=== PATIENT | female | born 1985 | race Caucasian/White ===

== ENCOUNTER 2018-08-23 16:48 | Inpatient (IN) | payer OTHER ==
[2018-08-23 21:32] VITALS: BMI 23.6
[2018-08-23] MEDS ORDERED: MELATONIN 5 MG TABLETS PO PRN (22:00)
--- NOTE | 2018-08-23 22:28 | HP ---
COWS - Scale Resting Pulse: 2= [place] 101-120 Sweatin=Flushed/Facial Moisture Restless Observation: 1= Difficult to Sit Still Pupil Size: 0= Normal to Room Light Bone or Joint Aches: 4=Acute Joint/Muscle Pain Runny Nose/ Eye Tearin= Runny Nose/Eyes GI Upset > 30mins: 1= Stomach Cramp Tremor Observation: 4= Gross Tremor/Twitching Yawning Observation: 1= 1-2x During Session Anxiety or Irritability: 2=Irritable/Anxious Goose Flesh Skin: 0=Smooth Skin COWS Score: 19 CIWA Score Nausea/Vomitin (vomiting x 3) Muscle Tremors: 4-Moderate,w/Arms Extend Anxiety: 3 Agitation: 3 Paroxysmal Sweats: 1-Minimal Palms Moist Orientation: 2-Disoriented Date<2 days Tacttile Disturbances: 0-None Auditory Disturbances: 0-None Visual Disturbances: 1-Very Mild Sensitivity Headache: 3-Moderate CIWA-Ar Total Score: 20 - Admission Criteria [facility] Guidelines: Admission for Medically Managed Detox: Requires at least one of the followin. CIWA greater than 12 2. Seizures within the past 24 hours 3. Delirium tremens within the past 24 hours 4. Hallucinations within the past 24 hours 5. Acute intervention needed for co occurring medical disorder 6. Acute intervention needed for co occurring psychiatric disorder 7. Severe withdrawal that cannot be handled at a lower level of care (continued vomiting, continued diarrhea, abnormal vital signs) requiring intravenous medication and/or fluids 8. Admission ROS [facility] Chief Complaint: Alcohol and heroin withdrawal symptoms Allergies/Adverse Reactions: Allergies Allergy/AdvReac Type Severity Reaction Status Date / Time amoxicillin Allergy Severe Hives Verified 08/23/18 20:50 Penicillins Allergy Severe Swelling Verified 08/23/18 20:50 History of Present Illness: 33 years old female with a long history of alcohol and heroin dependence is seeking admission to detox. This is her first admission to [facility]. Patient has been in previous detox and reports insignificant period of sobriety. She has medical history of anxiety, depression, renal failure, Hepatitis C and anxiety. She denies suicidal ideation at this time - Ebola screening Have you traveled outside of the country in the last 21 days: No Have you had contact with anyone from an Ebola affected area: No Have you been sick,other than usual withdrawal symptoms: No Do you have a fever: No Patient History - Patient Medical History Hx Anemia: Yes Hx Asthma: No Hx Chronic Obstructive Pulmonary Disease (COPD): No Hx Cancer: No Hx Cardiac Disorders: No Hx Congestive Heart Failure: No Hx Hypertension: No Hx Hypercholesterolemia: No Hx Pacemaker: No HX Cerebrovascular Accident: No Hx Seizures: Yes (Not on medication) Hx Diabetes: No Hx Gastrointestinal Disorders: No Hx Genitourinary Disorders: No Hx Sexually Transmitted Disorders: No Hx Renal Disease (ESRD): Yes (Kidney Failure) Hx Thyroid Disease: No Hx Human Immunodeficiency Virus (HIV): No (Negative 2018) Hx Hepatitis C: Yes (Not treated) Hx Depression: Yes (Not on medication) Hx Suicide Attempt: No Hx Schizophrenia: No Other Medical History: Anxiety - Not on medication - Patient Surgical History Past Surgical History: No Hx Neurologic Surgery: No Hx Cataract Extraction: No Hx Cardiac Surgery: No Hx Lung Surgery: No Hx Breast Surgery: No Hx Breast Biopsy: No Hx Abdominal Surgery: No Hx Appendectomy: No Hx Cholecystectomy: No Hx Genitourinary Surgery: No Hx Section: No Hx Orthopedic Surgery: No Anesthesia Reaction: No - PPD History Previous Implant?: Yes Documented Results: Negative w/o proof Implanted On Prior R Admission?: No PPD to be Administered?: Yes - Reproductive History Patient is a Female of Child Bearing Age (11 -55 yrs old): Yes Last Menstrual Period: 08/04/18 Patient : No - Smoking Cessation Smoking history: Current every day smoker Have you smoked in the past 12 months: Yes Aproximately how many cigarettes per day: 10 Hx Chewing Tobacco Use: No Initiated information on smoking cessation: Yes 'Breaking Loose' booklet given: 08/23/18 - Substance & Tx. History Hx Alcohol Use: Yes Hx Substance Use: Yes Substance Use Type: Alcohol, Cocaine, Heroin, Marijuana, Opiates Hx Substance Use Treatment: Yes ([place], [place]) - Substances Abused Alcohol Route: Oral Frequency: Daily Amount used: LIQUOR- 1 PINT, BEER- 1 SIX PACK Age of first use: 22 Date of Last Use: 08/23/18 Heroin Route: Injection Frequency: Daily Amount used: 4 BAGS Age of first use: 22 Date of Last Use: 08/23/18 Crack Route: Smoking Frequency: Daily Amount used: $100 WORTH Age of first use: 22 Date of Last Use: 08/23/18 Marijuana/Hashish Route: Smoking Frequency: Daily Amount used: 3.5 gm Age of first use: 22 Date of Last Use: 08/22/18 Family Disease History - Family Disease History Family History: Denies Admission Physical Exam [facility] - Vital Signs Vital Signs: Vital Signs - 24 hr 08/23/18 20:45 Temperature 98.1 F Pulse Rate 110 H Respiratory 18 Rate Blood Pressure 100/80 - Physical General Appearance: Yes: Moderate Distress, Tremorous, Irritable, Sweating, Anxious HEENTM: Yes: EOMI, Normal ENT Inspection, Normal Voice, KAYLYNN Respiratory: Yes: Lungs Clear, Normal Breath Sounds, No Respiratory Distress Breast: Yes: Breast Exam Deferred Cardiology: Yes: Tachycardia Abdominal: Yes: Normal Bowel Sounds, Soft Genitourinary: Yes: Within Normal Limits Back: Yes: Normal Inspection Musculoskeletal: Yes: Back pain, Muscle Pain, Muscle weakness Extremities: Yes: Tremors Neurological: Yes: Alert, Normal Mood/Affect Integumentary: Yes: Warm Lymphatic: Yes: Within Normal Limits - Diagnostic (1) Opioid dependence with withdrawal Current Visit: Yes Status: Chronic (2) Alcohol dependence with uncomplicated withdrawal Current Visit: Yes Status: Chronic (3) Nicotine dependence Current Visit: Yes Status: Chronic Qualifiers: Nicotine product type: cigarettes Substance use status: uncomplicated Qualified Code(s): F17.210 - Nicotine dependence, cigarettes, uncomplicated (4) Hep C w/ coma, chronic Current Visit: Yes Status: Chronic (5) Hep C w/o coma, chronic Current Visit: Yes Status: Chronic (6) Anemia Current Visit: Yes Status: Chronic Qualifiers: Anemia type: unspecified type Qualified Code(s): D64.9 - Anemia, unspecified (7) Seizure Current Visit: Yes Status: Chronic (8) Kidney failure Current Visit: Yes Status: Chronic Qualifiers: Renal failure chronicity: unspecified chronicity Qualified Code(s): N19 - Unspecified kidney failure (9) Depression Current Visit: Yes Status: Chronic Qualifiers: Depression Type: unspecified Qualified Code(s): F32.9 - Major depressive disorder, single episode, unspecified (10) Anxiety Current Visit: Yes Status: Chronic Cleared for Admission [facility] - Detox or Rehab [facility] Level of Care: Medically Managed Detox Regimen/Protocol: Methadone/Librium S Breath Alcohol Content Breath Alcohol Content: 0 Urine Pregancy Test - Result Urine Test Results: Negative- NO Line Present Urine Drug Screen - Results Drug Screen Negative: No Urine Drug Screen Results: THC-Marijuana, STEPHANIE-Cocaine, OPI-Opiates, OXY- Oxycodone
[2018-08-23] MEDS ORDERED: chlordiazePOXIDE HCL 25 MG CAPSULE PO PRN (22:40)
[2018-08-23] MEDS ORDERED: METHADONE HCL 10 MG TABLET (FOR DETOX USE ONLY) PO ONE ×2 (22:40→23:00)
[2018-08-23] MEDS ORDERED: guaiFENesin/D-METHORPHAN HB 10 ML UNIT-DOSE CUPS PO PRN (22:40)
[2018-08-23] MEDS ORDERED: MAGNESIUM HYDROX 2400MG/30ML ORAL SUSPENSION 30 ML CUP PO PRN (22:40)
[2018-08-23] MEDS ORDERED: ACETAMINOPHEN 325 MG TABLET (FP) PO PRN (22:40)
[2018-08-23] MEDS ORDERED: MAGNESIUM CITRATE 300 ML BOTTLE PO PRN (22:40)
[2018-08-23] MEDS ORDERED: NICOTINE POLACRILEX 2 MG GUM BC PRN (22:40)
[2018-08-23] MEDS ORDERED: LOPERAMIDE HCL 2 MG CAPSULE PO PRN (22:40)
[2018-08-23] MEDS ORDERED: P-EPHED 60MG/TRIPROLIDI 2.5MG TABLET PO PRN (22:40)
[2018-08-23] MEDS ORDERED: MENTHOL/PHENOL 1 EACH UD MM PRN (22:40)
[2018-08-23] MEDS ORDERED: MAG HYDROX/AL HYDROX/SIMETH 30 ML UNIT-DOSE CUP PO PRN (22:40)
[2018-08-23] MEDS ORDERED: IBUPROFEN 400 MG TABLET (FP) PO PRN (22:40)
[2018-08-24 03:03] LABS: URINE APPEARANCE CLOUDY; URINE BILIRUBIN NEGATIVE (<2.0 mg/dL); URINE COLOR YELLOW; URINE GLUCOSE (UA) NEGATIVE (NEGATIVE); URINE KETONE NEGATIVE (NEGATIVE); URINE LEUK ESTERASE TRACE (NEGATIVE); URINE NITRITE NEGATIVE (NEGATIVE); URINE PROTEIN NEGATIVE (NEGATIVE); URINE UROBILINOGEN NEGATIVE mg/dL (0.2-1.0)
[2018-08-24 03:13] LABS: EPI CELLS MODERATE /HPF (FEW); URINE BACTERIA RARE /hpf (NONE SEEN); URINE HYALINE CAST 23 /lpf; URINE MUCUS RARE
[2018-08-24] MEDS ORDERED: METHADONE HCL 10 MG TABLET PO ONE (04:06)
[2018-08-24] MEDS: chlordiazePOXIDE HCL 25 MG CAPSULE PO SCH ×4 (07:36→18:33)
[2018-08-24] MEDS ORDERED: PRENATAL VITAMINS W/ FOLIC ACID TABLET (FP) PO SCH (10:00)
[2018-08-24] MEDS ORDERED: NICOTINE 14 MG/24 HOURS TOPICAL PATCH TD SCH (10:00)
[2018-08-24] MEDS ORDERED: METHADONE HCL 10 MG TABLET (FOR DETOX USE ONLY) PO SCH (10:00)
[2018-08-24 10:06] LABS: HEMATOCRIT 23.9 % (32.4-45.2); HEMOGLOBIN 8.3 GM/dL (10.7-15.3); MCH 30.6 pg (25.7-33.7); MCHC 34.9 g/dl (32.0-36.0); MEAN CELL VOLUME 87.8 fl (80-96); MEAN PLT VOLUME 8.3 fl (7.5-11.1); PLATELET COUNT 270 K/MM3 (134-434); RBC 2.72 M/mm3 (3.60-5.2); RDW 13.8 % (11.6-15.6); WHITE BLOOD COUNT 10.3 K/mm3 (4.0-10.0)
[2018-08-24 10:36] LABS: ALBUMIN 2.8 g/dl (3.4-5.0); ALK PHOS 78 U/L (45-117); ANION GAP 15 MMOL/L (8-16); BILIRUBIN,TOTAL 0.6 mg/dL (0.2-1); BLOOD UREA NITROGEN 60 mg/dL (7-18); CALCIUM 8.3 mg/dL (8.5-10.1); CHLORIDE 90 mmol/L (98-107); CO2 27 mmol/L (21-32); GLUCOSE,RANDOM 77 mg/dL (74-106); POTASSIUM 4.9 mmol/L (3.5-5.1); SGOT/AST 7 U/L (15-37); SGPT/ALT 8 U/L (13-61); SODIUM 131 mmol/L (136-145); TOT PROT 7.4 g/dl (6.4-8.2)
--- NOTE | 2018-08-24 10:55 | PN ---
[facility] CIWA - CIWA Score Nausea/Vomitin-No Nausea/No Vomiting Muscle Tremors: 4-Moderate,w/Arms Extend Anxiety: 3 Agitation: 3 Paroxysmal Sweats: 3 Orientation: 0-Oriented Tacttile Disturbances: 0-None Auditory Disturbances: 0-None Visual Disturbances: 0-None Headache: 0-None Present CIWA-Ar Total Score: 13 [facility] COWS - Scale Resting Pulse: 0= [place] 80 or Below Sweatin= Chills/Flushing Restless Observation: 1= Difficult to Sit Still Pupil Size: 0= Normal to Room Light Bone or Joint Aches: 2= Severe Diffuse Aches Runny Nose/ Eye Tearin= Nasal Congestion GI Upset > 30mins: 0= None Tremor Observation of Outstretched Hands: 2= Slight Tremor Visible Yawning Observation: 2= >3x During Session Anxiety or Irritability: 2=Irritable/Anxious Goose Flesh Skin: 0=Smooth Skin COWS Score: 11 S Progress Note (SOAP) Subjective: agitation anxiety sweats shakes interrupted sleep body aches irritable Objective: 08/24/18 10:54 Vital Signs Temperature 97.2 F L 08/24/18 09:44 Pulse Rate 62 08/24/18 09:44 Respiratory Rate 16 08/24/18 09:44 Blood Pressure 85/57 L 08/24/18 09:44 O2 Sat by Pulse Oximetry (%) Laboratory Tests 08/23/18 08/24/18 08/24/18 23:50 07:00 07:00 WBC 10.3 H RBC 2.72 L Hgb 8.3 L Hct 23.9 L MCV 87.8 MCH 30.6 MCHC 34.9 RDW 13.8 Plt Count 270 MPV 8.3 Sodium 131 L Potassium 4.9 Chloride 90 L Carbon Dioxide 27 Anion Gap 15 BUN 60 H Creatinine 6.0 H Creat Clearance w eGFR 8.13 Random Glucose 77 Calcium 8.3 L Total Bilirubin 0.6 AST 7 L ALT 8 L Alkaline Phosphatase 78 Total Protein 7.4 Albumin 2.8 L Urine Color Yellow Urine Appearance Cloudy Urine pH 5.0 Ur Specific [place] 1.010 Urine Protein Negative Urine Glucose (UA) Negative Urine Ketones Negative Urine Blood Negative Urine Nitrite Negative Urine Bilirubin Negative Urine Urobilinogen Negative Ur Leukocyte Esterase Trace Urine WBC (Auto) 3 Urine RBC (Auto) 1 Ur Epithelial Cells Moderate Urine Bacteria Rare Hyaline Casts 23 Urine Mucus Rare low H:H; order iron supplement [id number] lying in bed groggy Assessment: 08/24/18 10:54 withdrawal sx Plan: hold 10am librium increase fluids continue detox labs pending
[2018-08-24 13:40] VITALS: BP 75/39; PULSE 66; TEMP 97.7
[2018-08-24] MEDS ORDERED: FERROUS SO4 325 MG TABLET (FP) PO ONE (14:00)
--- NOTE | 2018-08-24 15:01 | PN ---
S Progress Note Note: pt was asked to sit up so nursing staff and or Arrt Technologist can get a manual BP because her current BP is low. Pt was told that her medication will continue to be help unless her BP is higher than recently recorded. Last BP 75/39 and pulse 76. pt refused to comply with the need of BP. Pt states all I want to do is sleep. Pt counselor was also asked to speak to pt but pt insisted that she will do it later. Pt will continue to be monitored. Pt was also told that if her BP maintains low, she will be sent to our ED at [place] for evaluation and/or stability of her BP.
--- NOTE | 2018-08-24 15:20 | EKG ---
Test Reason : Blood Pressure : / mmHG Vent. Rate : 076 BPM Atrial Rate : 076 BPM P-R Int : 140 ms QRS Dur : 094 ms QT Int : 420 ms P-R-T Axes : 055 058 048 degrees QTc Int : 472 ms NORMAL SINUS RHYTHM NORMAL ECG NO PREVIOUS ECGS AVAILABLE Confirmed by Bladimir Rosas MD ([id number]) on 08/24/2018 3:19:51 PM Referred By: Confirmed By:Bladimir Rosas MD
--- NOTE | 2018-08-24 15:30 | CONSULT ---
[facility] Psychiatric Consult - Data Date of interview: 08/24/18 Admission source: [facility] Identifying data: [employer] attempted to speak to patient. Patient responded by stating, " I don't want to speak to you i am sleeping."
--- NOTE | 2018-08-24 15:51 | PN ---
S Progress Note Note: pt continues with low BP. last BP 75/35, pulse 66. pt is awake and abusable on command but falls right asleep. Report given to Dr. Teran for pt evaluation. Pt denies of any falls or using any illicit drugs while on our unit. Pt has not been medicated since she arrived last night. pt will be going to [place] ED.
[2018-08-24] MEDS ORDERED: FERROUS SO4 325 MG TABLET (FP) PO SCH (17:30)
[2018-08-24] MEDS ORDERED: THIAMINE HCL 100 MG TABLET (FP) PO SCH (22:00)
[2018-08-24] MEDS ORDERED: chlordiazePOXIDE HCL 25 MG CAPSULE PO SCH (23:00)
--- NOTE | 2018-08-25 08:56 | DS ---
[facility] Detox Discharge Summary Admission Date: 08/23/18 Discharge Date: 08/24/18 - Physical Exam Results Vital Signs: Vital Signs Temperature 97.7 F 08/24/18 13:40 Pulse Rate 66 08/24/18 13:40 Respiratory Rate 16 08/24/18 13:40 Blood Pressure 75/39 L 08/24/18 13:40 O2 Sat by Pulse Oximetry (%) - Medication Discharge Medications: Ambulatory Orders Acetaminophen [Tylenol] 650 mg PO Q4H PRN 08/24/18 Chlordiazepoxide [Librium -] 10 mg PO Q6HPO 08/24/18 Chlordiazepoxide [Librium -] 15 mg PO Q6HPO 08/24/18 Chlordiazepoxide [Librium -] 25 mg PO Q4H PRN 08/24/18 Chlordiazepoxide [Librium -] 25 mg PO Q6HPO 08/24/18 Chlordiazepoxide [Librium -] 50 mg PO Q6HPO 08/24/18 Ferrous Sulfate [Feosol] 325 mg PO DAILY 08/24/18 Guaifenesin Dm [Robitussin Dm -] 10 ml PO Q6H PRN 08/24/18 Ibuprofen [Motrin -] 400 mg PO PRN PRN 08/24/18 Loperamide HCl [Imodium -] 4 mg PO Q6H PRN 08/24/18 Mag Hydrox/Al Hydrox/Simeth [Mylanta *Suspension*] 30 ml PO Q6H PRN 08/24/18 Magnesium Citrate [Citroma -] 300 ml PO Q48H PRN 08/24/18 Magnesium Hydrox 2400MG/30Ml [Milk of Magnesia -] 30 ml PO ONCE PRN 08/24/18 Melatonin 5 mg PO HS PRN 08/24/18 Menthol/Phenol [Cepastat Lozenge -] 1 each MM Q4H PRN 08/24/18 Methadone (Detox) [Dolophine -] 10 mg PO DAILY 08/24/18 Methadone (Detox) [Dolophine -] 15 mg PO DAILY 08/24/18 Methadone (Detox) [Dolophine -] 20 mg PO DAILY 08/24/18 Nicotine Patch [Nicoderm Patch -] 1 patch TD DAILY 08/24/18 Nicotine Polacrilex [Nicorette] 2 mg BC Q2H PRN 08/24/18 Pnv No.95/Ferrous Fum/Folic AC [ Vitamin Tablet] 1 each PO DAILY Thiamine HCl [Vitamin B1] 100 mg PO HS 08/24/18 - Diagnosis (1) Alcohol dependence with uncomplicated withdrawal Status: Chronic (2) Anemia Status: Chronic Qualifiers: Anemia type: unspecified type Qualified Code(s): D64.9 - Anemia, unspecified (3) Anxiety Status: Chronic (4) Depression Status: Chronic Qualifiers: Depression Type: unspecified Qualified Code(s): F32.9 - Major depressive disorder, single episode, unspecified (5) Hep C w/o coma, chronic Status: Chronic (6) Kidney failure Status: Chronic Qualifiers: Renal failure chronicity: unspecified chronicity Qualified Code(s): N19 - Unspecified kidney failure (7) Nicotine dependence Status: Chronic Qualifiers: Nicotine product type: cigarettes Substance use status: uncomplicated Qualified Code(s): F17.210 - Nicotine dependence, cigarettes, uncomplicated (8) Opioid dependence with withdrawal Status: Chronic (9) Seizure Status: Chronic - AMA Did Patient Leave Against Medical Advice: No (pt sent and admitted to [facility] yesterday)
[2018-08-25] MEDS ORDERED: METHADONE HCL 5 MG TABLET (FOR DETOX USE ONLY) PO SCH (10:00)
[2018-08-25] MEDS ORDERED: chlordiazePOXIDE 5 MG CAPSULE PO SCH (23:00)
[2018-08-26] MEDS ORDERED: chlordiazePOXIDE HCL 10 MG CAPSULE PO SCH (23:00)
[2018-08-27] MEDS ORDERED: METHADONE HCL 10 MG TABLET (FOR DETOX USE ONLY) PO SCH (10:00)
[2018-08-28] MEDS ORDERED: METHADONE HCL 5 MG TABLET (FOR DETOX USE ONLY) PO SCH (06:00)
== END 2018-08-24 23:43 | disposition short-term general hospital (02) | DRG 773 ==
LOC: YASAS 16:48 → UNDOADMIN 23:02 → Y6N 23:02
PROVIDERS: ADMIT Neuromusculoskeletal Medicine & OMM; ATTEND Neuromusculoskeletal Medicine & OMM
PROC: HZ2ZZZZ Detoxification Services for Substance Abuse Treatment (ICD-10-PCS; principal; 2018-08-23)
DX: F11.23 Opioid dependence with withdrawal (principal); F10.230 Alcohol dependence with withdrawal, uncomplicated; F17.210 Nicotine dependence, cigarettes, uncomplicated; F41.9 Anxiety disorder, unspecified; F32.9 Major depressive disorder, single episode, unspecified; B18.2 Chronic viral hepatitis C; D64.9 Anemia, unspecified; N19 Unspecified kidney failure; R56.9 Unspecified convulsions; Z88.0 Allergy status to penicillin
CPT/HCPCS: 36415; 80053; 81003; 81015; 85027; 86593; 93005; 93010

== ENCOUNTER 2018-08-24 16:23 | Inpatient (IN) | payer OTHER ==
--- NOTE | 2018-08-24 17:18 | PDOC ---
History of Present Illness - General Chief Complaint: Blood Pressure Problem Stated Complaint: WITHDRAWAL Time Seen by Provider: 08/24/18 17:17 History Source: Patient Exam Limitations: Intoxication (methadone/librium) Past History - Past Medical History Allergies/Adverse Reactions: Allergies Allergy/AdvReac Type Severity Reaction Status Date / Time amoxicillin Allergy Severe Hives Verified 08/23/18 20:50 Penicillins Allergy Severe Swelling Verified 08/23/18 20:50 Home Medications: Ambulatory Orders Acetaminophen [Tylenol] 650 mg PO Q4H PRN 08/24/18 Chlordiazepoxide [Librium -] 10 mg PO Q6HPO 08/24/18 Chlordiazepoxide [Librium -] 15 mg PO Q6HPO 08/24/18 Chlordiazepoxide [Librium -] 25 mg PO Q4H PRN 08/24/18 Chlordiazepoxide [Librium -] 25 mg PO Q6HPO 08/24/18 Chlordiazepoxide [Librium -] 50 mg PO Q6HPO 08/24/18 Ferrous Sulfate [Feosol] 325 mg PO DAILY 08/24/18 Guaifenesin Dm [Robitussin Dm -] 10 ml PO Q6H PRN 08/24/18 Ibuprofen [Motrin -] 400 mg PO PRN PRN 08/24/18 Loperamide HCl [Imodium -] 4 mg PO Q6H PRN 08/24/18 Mag Hydrox/Al Hydrox/Simeth [Mylanta *Suspension*] 30 ml PO Q6H PRN 08/24/18 Magnesium Citrate [Citroma -] 300 ml PO Q48H PRN 08/24/18 Magnesium Hydrox 2400MG/30Ml [Milk of Magnesia -] 30 ml PO ONCE PRN 08/24/18 Melatonin 5 mg PO HS PRN 08/24/18 Menthol/Phenol [Cepastat Lozenge -] 1 each MM Q4H PRN 08/24/18 Methadone (Detox) [Dolophine -] 10 mg PO DAILY 08/24/18 Methadone (Detox) [Dolophine -] 15 mg PO DAILY 08/24/18 Methadone (Detox) [Dolophine -] 20 mg PO DAILY 08/24/18 Nicotine Patch [Nicoderm Patch -] 1 patch TD DAILY 08/24/18 Nicotine Polacrilex [Nicorette] 2 mg BC Q2H PRN 08/24/18 Pnv No.95/Ferrous Fum/Folic AC [ Vitamin Tablet] 1 each PO DAILY Thiamine HCl [Vitamin B1] 100 mg PO HS 08/24/18 Anemia: Yes Asthma: No Cancer: No Cardiac Disorders: No CVA: No COPD: No CHF: No Diabetes: No GI Disorders: No Disorders: No HTN: No Hypercholesterolemia: No Kidney Stones: No Seizures: Yes (Not on medication) Thyroid Disease: No - Surgical History Abdominal Surgery: No Appendectomy: No Cardiac Surgery: No Cholecystectomy: No Lung Surgery: No Neurologic Surgery: No Orthopedic Surgery: No - Suicide/Smoking/Psychosocial Hx Smoking History: Current every day smoker Have you smoked in the past 12 months: Yes Number of Cigarettes Smoked Daily: 10 'Breaking Loose' booklet given: 08/23/18 Hx Alcohol Use: Yes Drug/Substance Use Hx: Yes Substance Use Type: Alcohol, Cocaine, Heroin, Marijuana, Opiates Hx Substance Use Treatment: Yes ([place], [place]) ED Treatment Course - LABORATORY CBC & Chemistry Diagram: 08/24/18 17:50 08/24/18 17:50 Medical Decision Making - Medical Decision Making Pt was seen at bedside, also will be seen by attending Dr. Obrien. Pt presenting from [facility], with hypotension and lethargy. The facility states they gave her methadone and librium this morning, but the pt has been "too lethargic" and they noted BPs of 80s/40s. The pt states her BP is "always really low," but does not know the numbers. Pt is at [facility] for detox of alcohol (1 pint liquor per day), BP 94/41, HR 70s, saturation 100% on RA, afebrile. PE showed tongue fasciculations, eyes PERRLA, pt lethargic, but able to arouse for questioning. Pt oriented to year, place, and self/age. Clear heart and lung sounds. No abdominal/suprapubic tenderness, normoactive bowel sounds. 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 Considering methadone/librium reaction, acute drug overdose, infectious (UTI/ sepsis), electrolyte imbalance. Ordered work-up including CBC, CMP, lactic, blood culture, EKG, UA, urine culture, urine tox, alcohol/acetaminophen/salicylates. Provided [interventions/meds] for improvement of [pain/symptom control]. Will continue to reassess pt and monitor for symptomatic improvement. 08/24/18 18:08 CBC: H/H 9.0/26.1 (yesterday 8.3/23.9) 08/24/18 18:20 Urine sent, pending UA and drug screen results. Pending CMP. 08/24/18 18:28 ECG NSR, normal intervals, no ST segment changes. Pt signed out to next resident team. Explained presentation, ED course, any pending results, and needed interventions to resident Dr. Buckner. Pt stable and lying comfortably. Received 1L NS and banana bag currently hanging. 08/24/18 19:24
[2018-08-24] MEDS ORDERED: SODIUM CHLORIDE 1,565 ML IV ONE (17:38)
[2018-08-24] MEDS ORDERED: FOLIC ACID INJECTION - 1 MG, THIAMINE HCL 100 MG, MULTIVIT INJECTION ADULT 10 ML in SOD... IVPB ONE (17:41)
[2018-08-24] MEDS ORDERED: SODIUM CHLORIDE 1,000 ML IV STA (17:41)
[2018-08-24 18:02] LABS: BASO % 0.7 % (0-2.0); EOS % 2.2 % (0-4.5); HEMATOCRIT 26.1 % (32.4-45.2); LYMPH % 19.7 % (8-40); MCHC 34.4 g/dl (32.0-36.0); MEAN CELL VOLUME 87.1 fl (80-96); MEAN PLT VOLUME 8.4 fl (7.5-11.1); MONO % 8.5 % (3.8-10.2); NEUT % 68.9 % (42.8-82.8); PLATELET COUNT 284 K/MM3 (134-434); RBC 2.99 M/mm3 (3.60-5.2); RDW 13.8 % (11.6-15.6); WHITE BLOOD COUNT 7.1 K/mm3 (4.0-10.0)
[2018-08-24 18:41] LABS: URINE APPEARANCE CLEAR; URINE BILIRUBIN NEGATIVE (<2.0 mg/dL); URINE COLOR LTYELLOW; URINE GLUCOSE (UA) NEGATIVE (NEGATIVE); URINE KETONE NEGATIVE (NEGATIVE); URINE LEUK ESTERASE NEGATIVE (NEGATIVE); URINE NITRITE NEGATIVE (NEGATIVE); URINE PROTEIN NEGATIVE (NEGATIVE); URINE UROBILINOGEN NEGATIVE mg/dL (0.2-1.0)
[2018-08-24 18:52] LABS: PHENCYCLIDINE,URINE NEGATIVE ng/ml (CUTOFF=25); URINE AMPHETAMINES NEGATIVE ng/ml (CUTOFF=500); URINE BARBITURATES NEGATIVE ng/ml (CUTOFF=200); URINE BENZODIAZEPINES NEGATIVE ng/ml (CUTOFF=200)
[2018-08-24 18:52] LABS: ALBUMIN 2.5 g/dl (3.4-5.0); ALK PHOS 85 U/L (45-117); ANION GAP 12 MMOL/L (8-16); BILIRUBIN,TOTAL 0.3 mg/dL (0.2-1); BLOOD UREA NITROGEN 61 mg/dL (7-18); CALCIUM 8.4 mg/dL (8.5-10.1); CHLORIDE 92 mmol/L (98-107); CO2 27 mmol/L (21-32); CREATININE 5.3 mg/dL (0.55-1.3); GLUCOSE,RANDOM 99 mg/dL (74-106); POTASSIUM 5.6 mmol/L (3.5-5.1); SGOT/AST 8 U/L (15-37); SGPT/ALT 9 U/L (13-61); SODIUM 130 mmol/L (136-145); TOT PROT 7.2 g/dl (6.4-8.2)
[2018-08-24 18:58] LABS: COCAINE, UR POSITIVE ng/ml (CUTOFF=300); METHADONE, UR POSITIVE ng/ml (CUTOFF=300); OPIATES, URI POSITIVE ng/ml (CUTOFF=300)
--- NOTE | 2018-08-24 19:38 | PDOC ---
*Physical Exam - Vital Signs Last Vital Signs Temp Pulse Resp BP Pulse Ox 98.3 F 92 H 16 99/56 L 98 08/24/18 17:42 08/24/18 18:41 08/24/18 18:41 08/24/18 18:41 08/24/18 18:41 ED Treatment Course - LABORATORY CBC & Chemistry Diagram: 08/24/18 17:50 08/24/18 17:50 - ADDITIONAL ORDERS Additional order review: Laboratory Results 08/24/18 08/24/18 08/24/18 18:09 18:09 17:50 Sodium 130 L Potassium 5.6 H Chloride 92 L Carbon Dioxide 27 Anion Gap 12 BUN 61 H Creatinine 5.3 H Creat Clearance w eGFR 9.38 Random Glucose 99 Lactic Acid Calcium 8.4 L Total Bilirubin 0.3 AST 8 L ALT 9 L Alkaline Phosphatase 85 Troponin I < 0.02 Total Protein 7.2 Albumin 2.5 L Beta HCG, Quant < 1.0 Urine Color Ltyellow Urine Appearance Clear Urine pH 5.0 Ur Specific [place] 1.010 Urine Protein Negative Urine Glucose (UA) Negative Urine Ketones Negative Urine Blood Negative Urine Nitrite Negative Urine Bilirubin Negative Urine Urobilinogen Negative Ur Leukocyte Esterase Negative Salicylates < 1.7 L Opiates Screen Positive A* Methadone Screen Positive A* Acetaminophen < 2.0 L Barbiturate Screen Negative Phencyclidine Screen Negative Ur Amphetamines Screen Negative MDMA (Ecstasy) Screen Negative Benzodiazepines Screen Negative Cocaine Screen Positive A* U Marijuana (THC) Screen Positive A* Alcohol, Quantitative < 3.0 08/24/18 17:46 Sodium Potassium Chloride Carbon Dioxide Anion Gap BUN Creatinine Creat Clearance w eGFR Random Glucose Lactic Acid 1.2 Calcium Total Bilirubin AST ALT Alkaline Phosphatase Troponin I Total Protein Albumin Beta HCG, Quant Urine Color Urine Appearance Urine pH Ur Specific [place] Urine Protein Urine Glucose (UA) Urine Ketones Urine Blood Urine Nitrite Urine Bilirubin Urine Urobilinogen Ur Leukocyte Esterase Salicylates Opiates Screen Methadone Screen Acetaminophen Barbiturate Screen Phencyclidine Screen Ur Amphetamines Screen MDMA (Ecstasy) Screen Benzodiazepines Screen Cocaine Screen U Marijuana (THC) Screen Alcohol, Quantitative 08/24/18 17:50 RBC 2.99 L MCV 87.1 MCHC 34.4 RDW 13.8 MPV 8.4 Neutrophils % 68.9 Lymphocytes % 19.7 Monocytes % 8.5 Eosinophils % 2.2 Basophils % 0.7 - Medications Given in the ED: ED Medications Discontinued Medications Generic Name Dose Route Start Last Admin Trade Name [place] PRN Reason Stop Dose Admin Sodium Chloride 1,565 mls @ 782.5 mls/hr 08/24/18 17:38 08/24/18 17:43 Normal Saline - 30 ml/kg infuse over 2 hr (1565 ml) 08/24/18 19:37 Not Given IV ONCE ONE Sodium Chloride 1,000 mls @ 1,000 mls/hr 08/24/18 17:41 08/24/18 17:43 Normal Saline - IV 08/24/18 18:40 1,000 mls/hr ASDIR STA Administration Medical Decision Making - Medical Decision Making 08/24/18 19:[address] Teran. 08/24/18 20:12 Patient noted to have peaked T waves on EKG. Kayexalate PO given for treatment. Ammonia also added on to r/o uremia. Patient admitted to inpatient team for further care/observation, kidney treatment, and normalization of electrolyte abnormalities / withdrawl treatment. *DC/Admit/Observation/Transfer Diagnosis at time of Disposition: Opioid dependence with withdrawal Kidney failure Qualifiers: Renal failure chronicity: unspecified chronicity Qualified Code(s): N19 - Unspecified kidney failure - Discharge Dispostion Decision to Admit order: Yes - Referrals - Patient Instructions - Post Discharge Activity
[2018-08-24] MEDS ORDERED: SODIUM POLYSTYRENE SULFONATE 15 GM/60 ML BOTTLE PO ONE (19:51)
--- NOTE | 2018-08-24 19:55 | PDOC ---
Attending Attestation - Resident Resident Name: Juana Teran - ED Attending Attestation I have performed the following: I have examined & evaluated the patient, The case was reviewed & discussed with the resident, I agree w/resident's findings & plan, Exceptions are as noted - Medical Decision Making 08/24/18 19:55 A portion of this note was documented by scribe services under my direction. I have reviewed the details of the note, within reason, and agree with the documentation with the following case summary and management plan written by me. Patient treated in the ED. Nursing notes are reviewed and incorporated into the medical decision-making. Vital signs reviewed. Peripheral IV access obtained by the nurse, laboratory studies are drawn and sent, reviewed and interpreted by myself. Vital Signs Temp Pulse Resp BP Pulse Ox 98.3 F 92 H 16 99/56 L 98 08/24/18 17:42 08/24/18 18:41 08/24/18 18:41 08/24/18 18:41 08/24/18 18:41 33-year-old female history of anemia, polysubstance abuse including alcohol and heroin, chronic renal sufficiency, hepatitis C, depression, seizure disorder sent in from [address] [place] [address] for evaluation for lethargy and hypotension. The patient was recently admitted to [address] [place] [address] for detoxification. The patient had received a dose of Librium and methadone. Since then, the patient has had blood pressure was 70 systolic and lethargy. Patient has been arousable voice. Because of persistence of hypertension patient's into the ER. The patient reports that she always has low-lying blood pressure but does not know her baseline. She denies any pain, fevers, chills, cough, vomiting, diarrhea, dysuria. She does report feeling some sleepiness but is arousable. Patient's creatinine and BUN is noted to be elevated. I suspect the patient is not clearing her medications secondary to her chronic low sufficiency. Patient should be considered for potential dialysis. At this time, patient's potassium is slightly elevated and some mildly pointy T waves. We'll give Kayexalate and observe the patient on telemetry. We'll defer on head CT at the patient is alert when verbally stimulated. She has no headache at this time. We'll admit the patient to hospital given these persistence of findings. <Ervin Ferrera - Last Filed: 08/24/18 19:50> - HPI HPI: 08/24/18 20:12 The patient is a 33 year old female with a significant PMH of anemia, polysubstance abuse,chronic renal sufficiency, hepatitis C, depression, and seizure disorder who presents to the emergency department via EMS from [place] [facility] with noted lethargy and hypotension since earlier today. As per ems, the patient was recently admitted to [place] [facility] from detox. She endorses low blood pressure usually but is unaware of what her baseline is . the patient denies any other symptoms or complaints. - Physicial Exam PE: 08/24/18 20:12 GENERAL: (+)sleepy but arousable to voice. in no acute distress EYES: PERRLA, EOMI, sclera anicteric, conjunctiva clear ENT: Auricles normal inspection, hearing grossly normal, nares patent, Moist mucosa NECK: Normal ROM, supple, JVD, or masses LUNGS: Breath sounds equal, clear to auscultation bilaterally. No wheezes, and no crackles HEART: Regular rate and rhythm, normal S1 and S2, no murmurs, rubs or gallops ABDOMEN: Soft, nontender. No guarding, no rebound. No masses EXTREMITIES: moving all extremities. Normal range of motion, no edema. No clubbing or cyanosis. No cords, erythema, or tenderness Documentation prepared by Tex Amaya, acting as medical observer for Ervin Ferrera MD. <Tex Amaya - Last Filed: 08/24/18 20:12> Heart Score/ECG Review #1 ECG reviewed & interpreted by me at: 18:00 08/24/18 19:51 NSR 69, no std/gila, TWI V2, no std/gila, pointy T waves V4-V6, no std/gila, QTC 447 msec <Ervin Ferrera - Last Filed: 08/24/18 19:50>
--- NOTE | 2018-08-24 20:35 | PN ---
Teaching Attending Note Name of Resident: Michael Hernandez ATTENDING PHYSICIAN STATEMENT I saw and evaluated the patient. I reviewed the resident's note and discussed the case with the resident. I agree with the resident's findings and plan as documented. SUBJECTIVE: Patient is a 33 year old woman with history of anemia, penicillin allergy, tobacco use, polysubstance abuse including alcohol and heroin, CKD, hepatitis C , depression, seizure disorder sent in from [address] [place] [address] for evaluation for lethargy and hypotension. The patient was recently admitted to [facility] for detoxification. The patient had received a dose of Librium and methadone. Since then, the patient has had systoloc BP of 70 and lethargy. Patient has been arousable to voice. The patient reports that she always has low-lying blood pressure but does not know her baseline. She denies any pain, fevers, chills, cough, vomiting, diarrhea, dysuria. She does report feeling some sleepiness but is arousable. OBJECTIVE: Somnolent but arousable Vital Signs Period Temp Pulse Resp BP Sys/Torres Pulse Ox Last 24 Hr 98.3 F-98.5 F 73-92 16-18 82-99/40-56 98-100 HEENT: No Jaundice, eye redness or discharge, PERRLA, EOMI. Normocephalic, atraumatic. External ears are normal and hearing is grossly intact. No nasal discharge. Neck: Supple, nontender. No palpable adenopathy or thyromegaly. No JVD Chest: Good effort. Clear to auscultation and percussion. Heart: Regular. No S3, rub or murmur Abdomen: Not distended, soft, nontender and no HSM. No rebound or guarding. Normoactive bowel sounds. Ext: Peripheral pulses intact. No leg edema. Skin: Warm and dry. Sequelae of IVDA in both forearms. No petechiae, rash or ecchymosis. Neuro: Somnolent but arousable. Oriented to person. CN 2-12 grossly intact. Sensation grossly intact in all four extremities and DTR are symmetric. Current Medications Generic Name Dose Route Start Last Admin Trade Name Freq PRN Reason Stop Dose Admin Folic Acid 1 mg/ Thiamine HCl 1,000 mls @ 125 mls/hr 08/24/18 17:41 08/24/18 19:22 100 mg/ Multivitamins/Minerals IVPB 08/25/18 01:40 125 mls/hr 10 ml/ Sodium Chloride ONCE ONE Administration Home Medications Medication Instructions Recorded Acetaminophen [Tylenol] 650 mg PO Q4H PRN 08/24/18 Chlordiazepoxide [Librium -] 10 mg PO Q6HPO 08/24/18 Chlordiazepoxide [Librium -] 15 mg PO Q6HPO 08/24/18 Chlordiazepoxide [Librium -] 25 mg PO Q4H PRN 08/24/18 Chlordiazepoxide [Librium -] 25 mg PO Q6HPO 08/24/18 Chlordiazepoxide [Librium -] 50 mg PO Q6HPO 08/24/18 Ferrous Sulfate [Feosol] 325 mg PO DAILY 08/24/18 Guaifenesin Dm [Robitussin Dm -] 10 ml PO Q6H PRN 08/24/18 Ibuprofen [Motrin -] 400 mg PO PRN PRN 08/24/18 Loperamide HCl [Imodium -] 4 mg PO Q6H PRN 08/24/18 Mag Hydrox/Al Hydrox/Simeth 30 ml PO Q6H PRN 08/24/18 [Mylanta *Suspension*] Magnesium Citrate [Citroma -] 300 ml PO Q48H PRN 08/24/18 Magnesium Hydrox 2400MG/30Ml [Milk 30 ml PO ONCE PRN 08/24/18 of Magnesia -] Melatonin 5 mg PO HS PRN 08/24/18 Menthol/Phenol [Cepastat Lozenge -] 1 each MM Q4H PRN 08/24/18 Methadone (Detox) [Dolophine -] 10 mg PO DAILY 08/24/18 Methadone (Detox) [Dolophine -] 15 mg PO DAILY 08/24/18 Methadone (Detox) [Dolophine -] 20 mg PO DAILY 08/24/18 Nicotine Patch [Nicoderm Patch -] 1 patch TD DAILY 08/24/18 Nicotine Polacrilex [Nicorette] 2 mg BC Q2H PRN 08/24/18 Pnv No.95/Ferrous Fum/Folic AC 1 each PO DAILY 08/24/18 [ Vitamin Tablet] Thiamine HCl [Vitamin B1] 100 mg PO HS 08/24/18 Abnormal Lab Results 11/08/24/18 08/24/18 17:50 17:50 18:09 RBC 2.99 L Hgb 9.0 L Hct 26.1 L Sodium 130 L Potassium 5.6 H Chloride 92 L BUN 61 H Creatinine 5.3 H Calcium 8.4 L AST 8 L ALT 9 L Albumin 2.5 L Salicylates < 1.7 L Opiates Screen Positive A* Methadone Screen Positive A* Acetaminophen < 2.0 L Cocaine Screen Positive A* U Marijuana (THC) Screen Positive A* ASSESSMENT AND PLAN: 1. Altered mental status/Hypotension/Polysubstance abuse - Presentation likely a consequence of illicit drug use and combined effects of methadone and librium. Utox shows multiple illicit drugs. Continue gentle IV and oral fluids, monitor for drug withdrawal. Consult party supply specialist. 2. Hypoalbuminemia - Possibly due to combined effects of malnutrition and inflammation associated with comorbid chronic conditions. Will ensure adequate dietary protein intake and also consult airline stewardess. 3. Tobacco Use We will provide patient all the necessary assistance to facilitate smoking cessation and prescribe Nicotine patch. 4. CKD - Etiology unclear -she is on Motrin?. Has tall peaked T waves on EKG - will give Ca gluconate and kayexalate and check BMP. Get kidney sonogram, CPK, phosphate and PTH levels. Consult nephrology and avoid nephrotoxic agents such as NSAIDS, aminoglycosides, contrast dyes and certain Alternative medicine products. 5. Anemia - Partly due to CKD. Will do basic anemia work up including serial stool guaiacs, reticulocyte count and iron studies. Would benefit from Procrit therapy once iron replete. 6. Alcohol abuse - Implement [facility] alcohol withdrawal protocol, fall and aspiration precautions. Treat with thiamine and folic acid and monitor electrolytes (Ca,Mg,K,P). End Touching Machine Operator patient about abstaining from alcohol and refer to alcohol detox upon discharge. 7. DVT prophylaxis - Heparin 5000u sq tid. 8. Advance directives - Full code
[2018-08-24] MEDS ORDERED: SODIUM POLYSTYRENE SULFONATE 15 GM/60 ML BOTTLE ONE ×2 (21:03→22:30)
--- NOTE | 2018-08-24 22:24 | HP ---
CHIEF COMPLAINT: lethargy and hypotension PCP: none HISTORY OF PRESENT ILLNESS: 33 yo f w/ PMH anemia, polysubstance abuse (ETOH, heroin), hepatitis c, chronic renal insufficiency who was sent from [facility] for lethargy and hypotension. Patient was reluctant to talk during the interview, so the following history was obtained partially from the medical record. Patient received both methadone and Librium in [facility], then became lethargic and was found to have a BP of 80/40. Patient currently has no complaints and wishes to sleep. ER course was notable for: (1) Hb 9.0, sodium 130, potassium 5.6, BUN 61, Cr. 5.3 (2) Utox positive for cocaine, THC, opiates, Benzos (3) Recent Travel: none PAST MEDICAL HISTORY: see HPI PAST SURGICAL HISTORY: none Social History: Smoking: current smoker Alcohol: current drinker, unable to obtain last drink Drugs: heroin, last use 3 days ago Family History: Allergies amoxicillin Allergy (Severe, Verified 08/23/18 20:50) Hives Penicillins Allergy (Severe, Verified 08/23/18 20:50) Swelling HOME MEDICATIONS: Home Medications Medication Instructions Recorded Acetaminophen [Tylenol] 650 mg PO Q4H PRN 08/24/18 Chlordiazepoxide [Librium -] 10 mg PO Q6HPO 08/24/18 Chlordiazepoxide [Librium -] 15 mg PO Q6HPO 08/24/18 Chlordiazepoxide [Librium -] 25 mg PO Q4H PRN 08/24/18 Chlordiazepoxide [Librium -] 25 mg PO Q6HPO 08/24/18 Chlordiazepoxide [Librium -] 50 mg PO Q6HPO 08/24/18 Ferrous Sulfate [Feosol] 325 mg PO DAILY 08/24/18 Guaifenesin Dm [Robitussin Dm -] 10 ml PO Q6H PRN 08/24/18 Ibuprofen [Motrin -] 400 mg PO PRN PRN 08/24/18 Loperamide HCl [Imodium -] 4 mg PO Q6H PRN 08/24/18 Mag Hydrox/Al Hydrox/Simeth 30 ml PO Q6H PRN 08/24/18 [Mylanta *Suspension*] Magnesium Citrate [Citroma -] 300 ml PO Q48H PRN 08/24/18 Magnesium Hydrox 2400MG/30Ml [Milk 30 ml PO ONCE PRN 08/24/18 of Magnesia -] Melatonin 5 mg PO HS PRN 08/24/18 Menthol/Phenol [Cepastat Lozenge -] 1 each MM Q4H PRN 08/24/18 Methadone (Detox) [Dolophine -] 10 mg PO DAILY 08/24/18 Methadone (Detox) [Dolophine -] 15 mg PO DAILY 08/24/18 Methadone (Detox) [Dolophine -] 20 mg PO DAILY 08/24/18 Nicotine Patch [Nicoderm Patch -] 1 patch TD DAILY 08/24/18 Nicotine Polacrilex [Nicorette] 2 mg BC Q2H PRN 08/24/18 Pnv No.95/Ferrous Fum/Folic AC 1 each PO DAILY 08/24/18 [ Vitamin Tablet] Thiamine HCl [Vitamin B1] 100 mg PO HS 08/24/18 REVIEW OF SYSTEMS CONSTITUTIONAL: Absent: fever, generalized weakness, malaise, weight change HEENT: Absent: rhinorrhea, nasal congestion, throat pain, throat swelling, difficulty swallowing, mouth swelling, ear pain, eye pain, visual changes CARDIOVASCULAR: Absent: chest pain, syncope, palpitations, irregular heart rate, lightheadedness , peripheral edema RESPIRATORY: Absent: cough, shortness of breath, dyspnea with exertion, orthopnea, wheezing, stridor, hemoptysis GASTROINTESTINAL: Absent: abdominal distension, diarrhea, constipation, melena, hematochezia GENITOURINARY: Absent: dysuria, frequency, urgency, hesitancy, hematuria, flank pain, genital pain MUSCULOSKELETAL: Absent: myalgia, arthralgia, joint swelling, back pain, neck pain SKIN: Absent: rash, itching, pallor HEMATOLOGIC/IMMUNOLOGIC: Absent: easy bleeding, easy bruising, lymphadenopathy, frequent infections ENDOCRINE: Absent: unexplained weight gain, unexplained weight loss, heat intolerance, cold intolerance NEUROLOGIC: Absent: headache, focal weakness or paresthesias, dizziness, unsteady gait, seizure, mental status changes, bladder or bowel incontinence PSYCHIATRIC: Absent: anxiety, depression, suicidal or homicidal ideation, hallucinations. PHYSICAL EXAMINATION Vital Signs - 24 hr 08/24/18 08/24/18 08/24/18 17:17 17:42 18:41 Temperature 98.5 F 98.3 F Pulse Rate 73 Pulse Rate [ 73 92 H Left Apical] Respiratory 18 16 16 Rate Blood Pressure 82/40 L Blood Pressure 94/41 L 99/56 L [Left Arm] O2 Sat by Pulse 100 100 98 Oximetry (%) GENERAL: Awake, alert, and fully oriented, in no acute distress. HEAD: Normal with no signs of trauma. EYES: Pupils equal, round and reactive to light, extraocular movements intact, sclera anicteric, conjunctiva clear. No lid lag. LUNGS: Breath sounds equal, clear to auscultation bilaterally. No wheezes, and no crackles. No accessory muscle use. HEART: Regular rate and rhythm, normal S1 and S2. systolic murmur heard at the left upper sternal border and in the tricuspid region ABDOMEN: exam limited as the patient refused. Patient nontender to light palpation. LOWER EXTREMITIES: 2+ pulses, warm, well-perfused. No calf tenderness. No peripheral edema. NEUROLOGICAL: Cranial nerves II-X intact. Normal speech. strength 5/5 in all 4 extremities PSYCHIATRIC: Cooperative. Good eye contact. Appropriate mood and affect. SKIN: Warm, dry, normal turgor, no rashes or lesions noted, normal capillary refill. Laboratory Results - last 24 hr 08/24/18 08/24/18 08/24/18 17:46 17:50 17:50 WBC 7.1 RBC 2.99 L Hgb 9.0 L Hct 26.1 L MCV 87.1 MCH 30.0 MCHC 34.4 RDW 13.8 Plt Count 284 MPV 8.4 Absolute Neuts (auto) 4.9 Neutrophils % 68.9 Lymphocytes % 19.7 Monocytes % 8.5 Eosinophils % 2.2 Basophils % 0.7 Nucleated RBC % 0 Sodium 130 L Potassium 5.6 H Chloride 92 L Carbon Dioxide 27 Anion Gap 12 BUN 61 H Creatinine 5.3 H Creat Clearance w eGFR 9.38 Random Glucose 99 Lactic Acid 1.2 Calcium 8.4 L Total Bilirubin 0.3 AST 8 L ALT 9 L Alkaline Phosphatase 85 Troponin I < 0.02 Total Protein 7.2 Albumin 2.5 L Beta HCG, Quant < 1.0 Urine Color Urine Appearance Urine pH Ur Specific Nesmith Urine Protein Urine Glucose (UA) Urine Ketones Urine Blood Urine Nitrite Urine Bilirubin Urine Urobilinogen Ur Leukocyte Esterase Salicylates < 1.7 L Opiates Screen Methadone Screen Acetaminophen < 2.0 L Barbiturate Screen Phencyclidine Screen Ur Amphetamines Screen MDMA (Ecstasy) Screen Benzodiazepines Screen Cocaine Screen U Marijuana (THC) Screen Alcohol, Quantitative < 3.0 08/24/18 08/24/18 18:09 18:09 WBC RBC Hgb Hct MCV MCH MCHC RDW Plt Count MPV Absolute Neuts (auto) Neutrophils % Lymphocytes % Monocytes % Eosinophils % Basophils % Nucleated RBC % Sodium Potassium Chloride Carbon Dioxide Anion Gap BUN Creatinine Creat Clearance w eGFR Random Glucose Lactic Acid Calcium Total Bilirubin AST ALT Alkaline Phosphatase Troponin I Total Protein Albumin Beta HCG, Quant Urine Color Ltyellow Urine Appearance Clear Urine pH 5.0 Ur Specific Nesmith 1.010 Urine Protein Negative Urine Glucose (UA) Negative Urine Ketones Negative Urine Blood Negative Urine Nitrite Negative Urine Bilirubin Negative Urine Urobilinogen Negative Ur Leukocyte Esterase Negative Salicylates Opiates Screen Positive A* Methadone Screen Positive A* Acetaminophen Barbiturate Screen Negative Phencyclidine Screen Negative Ur Amphetamines Screen Negative MDMA (Ecstasy) Screen Negative Benzodiazepines Screen Negative Cocaine Screen Positive A* U Marijuana (THC) Screen Positive A* Alcohol, Quantitative ASSESSMENT/PLAN: The patient is a 33 yo f w/ OPMH hep c, chronic renal insufficiency and polysubstance abuse here for lethargy and low blood pressure. #hypotension and lethargy likely 2/2 recent administration of sedatives coupled w/ low BP at baseline -holding methadone and Librium for now -monitor BP -s/p 1 L NS in ED -will give NS @ 75 x 1L -caution with fluid given high creatinine and likely CKD #Hyponatremia and hypokalemia likely 2/2 CKD, PO intake and withdrawal -s/p 1 dose kayexalate in ED -will give 30mg kayexalate Q4h x 3 doses -will rpt CMP @ midnight -repeat EKG to eval for T wave peaking #CKD w/ elevated creatinine -check CPK r/o rhabdo due to cocaine -renal/bladder US -nephro consult #FEN -NS @ 75 x 1bag -monitor lytes as above -renal diet #Dispo -admit med surg obs Visit type - Emergency Visit Emergency Visit: Yes ED Registration Date: 08/24/18 Care time: The patient presented to the Emergency Department on the above date and was hospitalized for further evaluation of their emergent condition. - New Patient This patient is new to me today: Yes Date on this admission: 08/25/18 - Critical Care Critical Care patient: No
[2018-08-24] MEDS ORDERED: HEPARIN NA (PORCINE) 5,000 UNITS/ML 1ML VIAL ONE (22:30)
[2018-08-24] MEDS: SODIUM POLYSTYRENE SULFONATE 15 GM/60 ML BOTTLE PO SCH (23:30)
[2018-08-24] MEDS: HEPARIN NA (PORCINE) 5,000 UNITS/ML 1ML VIAL SQ SCH (23:30)
[2018-08-24] MEDS ORDERED: SODIUM CHLORIDE 1,000 ML IV SCH (23:45)
[2018-08-25 01:56] VITALS: BMI 26.3
[2018-08-25] MEDS ORDERED: ONDANSETRON 4 MG/2 ML VIAL IVPUSH PRN (01:58)
[2018-08-25] MEDS ORDERED: ACETAMINOPHEN 325 MG TABLET (FP) PO ONE (01:59)
[2018-08-25] MEDS: SODIUM POLYSTYRENE SULFONATE 15 GM/60 ML BOTTLE PO SCH ×2 (02:54→07:41)
[2018-08-25] MEDS: BACITRACIN 15 GM TUBE TOPICAL OINTMENT TP SCH ×2 (02:54→09:44)
[2018-08-25 07:00] LABS: BASO % 0.6 % (0-2.0); EOS % 2.2 % (0-4.5); HEMATOCRIT 23.2 % (32.4-45.2); HEMOGLOBIN 7.5 GM/dL (10.7-15.3); LYMPH % 14.9 % (8-40); MCH 28.2 pg (25.7-33.7); MCHC 32.1 g/dl (32.0-36.0); MEAN CELL VOLUME 87.8 fl (80-96); MEAN PLT VOLUME 7.6 fl (7.5-11.1); MONO % 7.7 % (3.8-10.2); NEUT % 74.6 % (42.8-82.8); PLATELET COUNT 264 K/MM3 (134-434); RBC 2.64 M/mm3 (3.60-5.2); RDW 13.8 % (11.6-15.6); WHITE BLOOD COUNT 7.9 K/mm3 (4.0-10.0)
[2018-08-25] MEDS: HEPARIN NA (PORCINE) 5,000 UNITS/ML 1ML VIAL SQ SCH ×2 (07:09→13:57)
[2018-08-25 07:43] LABS: ALBUMIN 2.2 g/dl (3.4-5.0); ALK PHOS 71 U/L (45-117); ANION GAP 7 MMOL/L (8-16); BILIRUBIN,TOTAL 0.3 mg/dL (0.2-1); BLOOD UREA NITROGEN 46 mg/dL (7-18); CALCIUM 7.9 mg/dL (8.5-10.1); CHLORIDE 100 mmol/L (98-107); CO2 26 mmol/L (21-32); CREATININE 3.4 mg/dL (0.55-1.3); GLUCOSE,RANDOM 89 mg/dL (74-106); MAGNESIUM 1.8 mg/dL (1.8-2.4); PHOSPHOROUS 4.6 mg/dL (2.5-4.9); POTASSIUM 5.7 mmol/L (3.5-5.1); SGOT/AST 6 U/L (15-37); SGPT/ALT 9 U/L (13-61); SODIUM 133 mmol/L (136-145); TOT PROT 6.1 g/dl (6.4-8.2)
[2018-08-25] MEDS ORDERED: chlordiazePOXIDE HCL 25 MG CAPSULE PO PRN (11:11)
[2018-08-25] MEDS: METHADONE HCL 10 MG TABLET PO SCH (11:30)
--- NOTE | 2018-08-25 13:23 | CONSULT ---
Consult - text type - Consultation Consultation Note: Renal Consult for AYSE 33 year old white woman with hx of CKD (athropic Kidney as per patient), polysubstance abuse (heroin, ETOH), Hepatitis B, Hx of hyperkalmeia with paralysis presented from outpatient rehab with hypotension and acute renal injury. Pt reports that her renal function is not normal but cannot quantify. She does not follow with a flat folding machine operator. She reports both her sister and mother has a history of CKD with one small kidney. Denies any flank pain, hematuria, dysuria, N/V/D. No CP, SOB, Abd pain, fever or chills. PMhx: as above Allergies: NKDA Family Hx: NC Social hx: +T/A/D ROS: as per HPI, all other pertinent ros negative Home Medications Medication Instructions Recorded Acetaminophen [Tylenol] 650 mg PO Q4H PRN 08/24/18 Chlordiazepoxide [Librium -] 10 mg PO Q6HPO 08/24/18 Chlordiazepoxide [Librium -] 15 mg PO Q6HPO 08/24/18 Chlordiazepoxide [Librium -] 25 mg PO Q4H PRN 08/24/18 Chlordiazepoxide [Librium -] 25 mg PO Q6HPO 08/24/18 Chlordiazepoxide [Librium -] 50 mg PO Q6HPO 08/24/18 Ferrous Sulfate [Feosol] 325 mg PO DAILY 08/24/18 Guaifenesin Dm [Robitussin Dm -] 10 ml PO Q6H PRN 08/24/18 Ibuprofen [Motrin -] 400 mg PO PRN PRN 08/24/18 Loperamide HCl [Imodium -] 4 mg PO Q6H PRN 08/24/18 Mag Hydrox/Al Hydrox/Simeth 30 ml PO Q6H PRN 08/24/18 [Mylanta *Suspension*] Magnesium Citrate [Citroma -] 300 ml PO Q48H PRN 08/24/18 Magnesium Hydrox 2400MG/30Ml [Milk 30 ml PO ONCE PRN 08/24/18 of Magnesia -] Melatonin 5 mg PO HS PRN 08/24/18 Menthol/Phenol [Cepastat Lozenge -] 1 each MM Q4H PRN 08/24/18 Methadone (Detox) [Dolophine -] 10 mg PO DAILY 08/24/18 Methadone (Detox) [Dolophine -] 15 mg PO DAILY 08/24/18 Methadone (Detox) [Dolophine -] 20 mg PO DAILY 08/24/18 Nicotine Patch [Nicoderm Patch -] 1 patch TD DAILY 08/24/18 Nicotine Polacrilex [Nicorette] 2 mg BC Q2H PRN 08/24/18 Pnv No.95/Ferrous Fum/Folic AC 1 each PO DAILY 08/24/18 [ Vitamin Tablet] Thiamine HCl [Vitamin B1] 100 mg PO HS 08/24/18 Vital Signs Temperature 99.3 F 08/25/18 09:00 Pulse Rate 82 08/25/18 09:00 Respiratory Rate 18 08/25/18 09:00 Blood Pressure 90/54 L 08/25/18 09:00 O2 Sat by Pulse Oximetry (%) 98 08/24/18 23:33 Intake & Output 08/22/18 08/23/18 08/24/18 08/25/18 23:59 23:59 23:59 23:59 Intake Total 450 Balance 450 Weight 74.072 kg NAD awake and alert Dry MM, No JVD, neck supple RRR, no M/R CTA, no rales or wheeze soft NT/ND No LE edema no bladder distension CBC, BMP 08/25/18 06:15 08/25/18 06:15 Laboratory Tests 08/25/18 08/25/18 08/25/18 06:15 06:15 07:40 MCV 87.8 Creat Clearance w eGFR 15.65 Serum Osmolality 294 Calcium 7.9 L Phosphorus 4.6 Magnesium 1.8 Albumin 2.2 L Laboratory Tests 08/24/18 08/24/18 08/25/18 07:00 17:50 06:15 BUN 60 H 61 H 46 H Creatinine 6.0 H 5.3 H 3.4 H Current Medications Bacitracin (Bacitracin -) 1 applic TP DAILY [facility] Last Admin: 08/25/18 09:44 Dose: 1 applic Chlordiazepoxide HCl (Librium -) 25 mg PO Q6H PRN PRN Reason: WITHDRAWAL(CONT SUBST) Heparin Sodium (Porcine) (Heparin -) 5,000 unit SQ TID [facility] Last Admin: 08/25/18 07:09 Dose: Not Given Methadone HCl (Dolophine -) 10 mg PO DAILY@0600 [facility] Last Admin: 08/25/18 11:30 Dose: 10 mg Ondansetron HCl (Zofran Injection) 4 mg IVPUSH Q6H PRN PRN Reason: NAUSEA 33 year old white woman with hx of CKD (athropic Kidney as per patient), polysubstance abuse (heroin, ETOH), Hepatitis B, Hx of hyperkalmeia with paralysis presented from outpatient rehab with hypotension and acute renal injury. #AYSE on CKD from volume depletion +/- NSAID induced ATN vs. 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
[2018-08-25] MEDS: SODIUM CHLORIDE 1,000 ML IV SCH (15:06)
--- NOTE | 2018-08-25 15:40 | EKG ---
Test Reason : Blood Pressure : / mmHG Vent. Rate : 069 BPM Atrial Rate : 069 BPM P-R Int : 138 ms QRS Dur : 100 ms QT Int : 418 ms P-R-T Axes : 007 074 034 degrees QTc Int : 447 ms NORMAL SINUS RHYTHM NORMAL ECG WHEN COMPARED WITH ECG OF 24-AUG-2018 17:57, NO SIGNIFICANT CHANGE WAS FOUND Confirmed by MARYLOU OLIVAREZ MD ([id number]) on 08/25/2018 3:40:07 PM Referred By: Confirmed By:MARYLOU OLIVAREZ MD
--- NOTE | 2018-08-25 15:40 | EKG ---
Test Reason : Blood Pressure : / mmHG Vent. Rate : 066 BPM Atrial Rate : 066 BPM P-R Int : 150 ms QRS Dur : 100 ms QT Int : 426 ms P-R-T Axes : 046 075 039 degrees QTc Int : 446 ms NORMAL SINUS RHYTHM INCOMPLETE RIGHT BUNDLE BRANCH BLOCK BORDERLINE ECG WHEN COMPARED WITH ECG OF 24-AUG-2018 00:44, NO SIGNIFICANT CHANGE WAS FOUND Confirmed by MARYLOU OLIVAREZ MD ([id number]) on 08/25/2018 3:40:11 PM Referred By: Confirmed By:MARYLOU OLIVAREZ MD
--- NOTE | 2018-08-25 16:09 | PN ---
Physical Exam: SUBJECTIVE: Patient seen and examined at bedside. No overnight events. No new complaints. she is tired and want to sleep. Denies CP,CULVER, SOB, abdominal pain, nausea or vomiting. OBJECTIVE: Vital Signs Period Temp Pulse Resp BP Sys/Torres Pulse Ox Last 24 Hr 98.3 F-99.3 F 73-92 16-20 82-108/40-60 95-100 GENERAL: Awake, alert, and fully oriented, in no acute distress. HEAD: Normal with no signs of trauma. EYES: PERRLA, EOMI, sclera anicteric, conjunctiva clear. No lid lag. LUNGS: CTAB. No wheezes, and no crackles. No accessory muscle use. HEART:RRR, normal S1 and S2. systolic murmur heard at the left upper sternal border and in the tricuspid region ABDOMEN: soft, NTND, NABS, no rebound or guarding. LOWER EXTREMITIES: 2+ pulses, warm, well-perfused. No calf tenderness. No peripheral edema. NEUROLOGICAL: Cranial nerves II-X intact. Normal speech. strength 5/5 in all 4 extremities Laboratory Results - last 24 hr 08/24/18 08/24/18 08/24/18 17:46 17:50 17:50 WBC 7.1 RBC 2.99 L Hgb 9.0 L Hct 26.1 L MCV 87.1 MCH 30.0 MCHC 34.4 RDW 13.8 Plt Count 284 MPV 8.4 Absolute Neuts (auto) 4.9 Neutrophils % 68.9 Lymphocytes % 19.7 Monocytes % 8.5 Eosinophils % 2.2 Basophils % 0.7 Nucleated RBC % 0 Sodium 130 L Potassium 5.6 H Chloride 92 L Carbon Dioxide 27 Anion Gap 12 BUN 61 H Creatinine 5.3 H Creat Clearance w eGFR 9.38 Random Glucose 99 Serum Osmolality Lactic Acid 1.2 Calcium 8.4 L Phosphorus Magnesium Total Bilirubin 0.3 AST 8 L ALT 9 L Alkaline Phosphatase 85 Troponin I < 0.02 Total Protein 7.2 Albumin 2.5 L Beta HCG, Quant < 1.0 Urine Color Urine Appearance Urine pH Ur Specific [place] Urine Protein Urine Glucose (UA) Urine Ketones Urine Blood Urine Nitrite Urine Bilirubin Urine Urobilinogen Ur Leukocyte Esterase Salicylates < 1.7 L Opiates Screen Methadone Screen Acetaminophen < 2.0 L Barbiturate Screen Phencyclidine Screen Ur Amphetamines Screen MDMA (Ecstasy) Screen Benzodiazepines Screen Cocaine Screen U Marijuana (THC) Screen Alcohol, Quantitative < 3.0 08/24/18 08/24/18 08/25/18 18:09 18:09 06:15 WBC 7.9 RBC 2.64 L Hgb 7.5 L Hct 23.2 L MCV 87.8 MCH 28.2 MCHC 32.1 RDW 13.8 Plt Count 264 MPV 7.6 Absolute Neuts (auto) 5.9 Neutrophils % 74.6 Lymphocytes % 14.9 D Monocytes % 7.7 Eosinophils % 2.2 Basophils % 0.6 Nucleated RBC % 0 Sodium Potassium Chloride Carbon Dioxide Anion Gap BUN Creatinine Creat Clearance w eGFR Random Glucose Serum Osmolality Lactic Acid Calcium Phosphorus Magnesium Total Bilirubin AST ALT Alkaline Phosphatase Troponin I Total Protein Albumin Beta HCG, Quant Urine Color Ltyellow Urine Appearance Clear Urine pH 5.0 Ur Specific [place] 1.010 Urine Protein Negative Urine Glucose (UA) Negative Urine Ketones Negative Urine Blood Negative Urine Nitrite Negative Urine Bilirubin Negative Urine Urobilinogen Negative Ur Leukocyte Esterase Negative Salicylates Opiates Screen Positive A* Methadone Screen Positive A* Acetaminophen Barbiturate Screen Negative Phencyclidine Screen Negative Ur Amphetamines Screen Negative MDMA (Ecstasy) Screen Negative Benzodiazepines Screen Negative Cocaine Screen Positive A* U Marijuana (THC) Screen Positive A* Alcohol, Quantitative 08/25/18 08/25/18 06:15 07:40 WBC RBC Hgb Hct MCV MCH MCHC RDW Plt Count MPV Absolute Neuts (auto) Neutrophils % Lymphocytes % Monocytes % Eosinophils % Basophils % Nucleated RBC % Sodium 133 L Potassium 5.7 H Chloride 100 Carbon Dioxide 26 Anion Gap 7 L BUN 46 H Creatinine 3.4 H Creat Clearance w eGFR 15.65 Random Glucose 89 Serum Osmolality 294 Lactic Acid Calcium 7.9 L Phosphorus 4.6 Magnesium 1.8 Total Bilirubin 0.3 AST 6 L ALT 9 L Alkaline Phosphatase 71 Troponin I Total Protein 6.1 L Albumin 2.2 L Beta HCG, Quant Urine Color Urine Appearance Urine pH Ur Specific [place] Urine Protein Urine Glucose (UA) Urine Ketones Urine Blood Urine Nitrite Urine Bilirubin Urine Urobilinogen Ur Leukocyte Esterase Salicylates Opiates Screen Methadone Screen Acetaminophen Barbiturate Screen Phencyclidine Screen Ur Amphetamines Screen MDMA (Ecstasy) Screen Benzodiazepines Screen Cocaine Screen U Marijuana (THC) Screen Alcohol, Quantitative Active Medications Generic Name Dose Route Start Last Admin Trade Name Freq PRN Reason Stop Dose Admin Bacitracin 1 applic 08/25/18 02:30 08/25/18 09:44 Bacitracin - TP 1 applic DAILY EMERALD Administration Chlordiazepoxide HCl 25 mg 08/25/18 11:11 Librium - PO Q6H PRN WITHDRAWAL(CONT SUBST) Heparin Sodium (Porcine) 5,000 unit 08/24/18 22:15 08/25/18 13:57 Heparin - SQ Not Given TID EMERALD Sodium Chloride 1,000 mls @ 100 mls/hr 08/25/18 14:00 08/25/18 15:06 Normal Saline - IV 100 mls/hr ASDIR EMERALD Administration Methadone HCl 10 mg 08/25/18 11:30 08/25/18 11:30 Dolophine - PO 10 mg DAILY@0600 EMERALD Administration Ondansetron HCl 4 mg 08/25/18 01:58 Zofran Injection IVPUSH Q6H PRN NAUSEA ASSESSMENT/PLAN: 33 yo f w/ OPMH hep c, chronic renal insufficiency and polysubstance abuse here for lethargy and hypotension admitted for AYSE. Problem List - Problems (1) Acute on chronic kidney failure Assessment/Plan: most likely 2/2 hypoperfusion * appreciated Nephro consult. * check urine for FeNa, UPCR, Urine Eos * Check Renal US to confirm atrophic or absent kidney * Continue istonic IVF at 100cc per hour * Trend serum K Q12h * Low potassium diet * Keep MAP > 65 Qualifiers: (2) Hyperkalemia Assessment/Plan: given Kayexelate. * renal diet * trend K+ (3) Hyponatremia Assessment/Plan: IVF with NS * repeat BMP. (4) Polysubstance abuse Assessment/Plan: Will need addictive medicine consult. * Methadone 10mg daily * librium 25mg PO PRN for agitation/withdrawl (5) Anemia Assessment/Plan: drop in H/H from admission * No signs of overt bleed. * FOBT * trend H/H * normal transfusion thresholds. Visit type - Emergency Visit Emergency Visit: Yes ED Registration Date: 08/24/18 Care time: The patient presented to the Emergency Department on the above date and was hospitalized for further evaluation of their emergent condition. - New Patient This patient is new to me today: Yes Date on this admission: 08/25/18 - Critical Care Critical Care patient: No
--- NOTE | 2018-08-25 16:16 | PN ---
Teaching Attending Note Name of Resident: Kiet Mcdonald ATTENDING PHYSICIAN STATEMENT I saw and evaluated the patient. I reviewed the resident's note and discussed the case with the resident. I agree with the resident's findings and plan as documented. SUBJECTIVE: Remains comfortable. OBJECTIVE: Significant with systolic murmur at tricuspid area. ASSESSMENT AND PLAN: The patient was seen and examined at bedside. C/W IV hydration for AYSE onCKD > please trend BMP. Check Creatine kinase. Drop in H/H > No overt bleeding. Probably hemodilutional > Repeat CBC PLAN D/W RESIDENT.
--- NOTE | 2018-08-25 16:29 | PN ---
[facility] Progress Note Note: addiction medicine consult requested for this patient . Patient declined, states " I feel fine " .
[2018-08-25 19:04] LABS: ANION GAP 11 MMOL/L (8-16); BLOOD UREA NITROGEN 37 mg/dL (7-18); CALCIUM 7.9 mg/dL (8.5-10.1); CHLORIDE 102 mmol/L (98-107); CO2 26 mmol/L (21-32); CREATININE 2.7 mg/dL (0.55-1.3); GLUCOSE,RANDOM 94 mg/dL (74-106); SODIUM 138 mmol/L (136-145)
[2018-08-26] MEDS ORDERED: PT OWN MED DRAWER 7, Y5N ONE ×2 (05:50→09:11)
[2018-08-26] MEDS: METHADONE HCL 10 MG TABLET PO SCH (06:18)
--- NOTE | 2018-08-26 07:43 | PN ---
Progress Note (short form) - Note Progress Note: Renal follow up for AYSE on CKD Pt seen and examined at the bedside is mildly agigated and walking around asking for more food denies any CP, SOB, Abd pain, N/V Reports mild cough was off IVF overnight because she had refused as per nurse making urine Vital Signs Temperature 98.0 F 08/25/18 22:00 Pulse Rate 69 08/25/18 22:00 Respiratory Rate 18 08/25/18 22:00 Blood Pressure 121/70 08/25/18 22:00 O2 Sat by Pulse Oximetry (%) 98 08/25/18 22:00 Intake & Output 08/23/18 08/24/18 08/25/18 08/26/18 23:59 23:59 23:59 23:59 Intake Total 1500 Balance 1500 Weight 74.072 kg NAD RRR CTA No LE edema CBC, BMP 08/26/18 06:45 Current Medications Bacitracin (Bacitracin -) 1 applic TP DAILY [facility] Last Admin: 08/25/18 09:44 Dose: 1 applic Chlordiazepoxide HCl (Librium -) 25 mg PO Q6H PRN PRN Reason: WITHDRAWAL(CONT SUBST) Heparin Sodium (Porcine) (Heparin -) 5,000 unit SQ TID [facility] Last Admin: 08/25/18 13:57 Dose: Not Given Sodium Chloride (Normal Saline -) 1,000 mls @ 100 mls/hr IV ASDIR [facility] Last Admin: 08/25/18 15:06 Dose: 100 mls/hr Methadone HCl (Dolophine -) 10 mg PO DAILY@0600 [facility] Last Admin: 08/26/18 06:18 Dose: 10 mg Ondansetron HCl (Zofran Injection) 4 mg IVPUSH Q6H PRN PRN Reason: NAUSEA 33 year old white woman with hx of CKD (athropic Kidney as per patient), polysubstance abuse (heroin, ETOH), Hepatitis B, Hx of hyperkalmeia with paralysis presented from outpatient rehab with hypotension and acute renal injury. #AYSE on CKD from volume depletion +/- NSAID induced ATN vs. 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
[2018-08-26 07:55] LABS: BASO % 0.6 % (0-2.0); EOS % 2.8 % (0-4.5); HEMATOCRIT 25.4 % (32.4-45.2); HEMOGLOBIN 8.3 GM/dL (10.7-15.3); LYMPH % 15.7 % (8-40); MCH 28.7 pg (25.7-33.7); MCHC 32.6 g/dl (32.0-36.0); MEAN PLT VOLUME 7.8 fl (7.5-11.1); MONO % 5.3 % (3.8-10.2); NEUT % 75.6 % (42.8-82.8); PLATELET COUNT 315 K/MM3 (134-434); RBC 2.89 M/mm3 (3.60-5.2); WHITE BLOOD COUNT 7.9 K/mm3 (4.0-10.0)
[2018-08-26 08:08] LABS: ANION GAP 5 MMOL/L (8-16); BLOOD UREA NITROGEN 31 mg/dL (7-18); CALCIUM 8.6 mg/dL (8.5-10.1); CHLORIDE 103 mmol/L (98-107); CO2 29 mmol/L (21-32); CREATININE 2.1 mg/dL (0.55-1.3); GLUCOSE,RANDOM 119 mg/dL (74-106); MAGNESIUM 1.5 mg/dL (1.8-2.4); PHOSPHOROUS 2.7 mg/dL (2.5-4.9); POTASSIUM 5.8 mmol/L (3.5-5.1); SODIUM 137 mmol/L (136-145)
[2018-08-26] MEDS ORDERED: SODIUM POLYSTYRENE SULFONATE 15 GM/60 ML BOTTLE PO ONE (09:00)
[2018-08-26] MEDS: BACITRACIN 15 GM TUBE TOPICAL OINTMENT TP SCH (09:20)
[2018-08-26] MEDS: SODIUM CHLORIDE 1,000 ML IV SCH ×3 (09:33→19:02)
--- NOTE | 2018-08-26 12:51 | PN ---
Teaching Attending Note Name of Resident: Kiet Mcdonald ATTENDING PHYSICIAN STATEMENT I saw and evaluated the patient. I reviewed the resident's note and discussed the case with the resident. I agree with the resident's findings and plan as documented. SUBJECTIVE:asymptomatic. states nothing is bothering her and she wants to be left alone. denies CP, SOB, fever, chills OBJECTIVE: Last Vital Signs Temp Pulse Resp BP Pulse Ox 98.0 F 69 18 121/70 98 08/25/18 22:00 08/25/18 22:00 08/25/18 22:00 08/25/18 22:00 08/25/18 22:00 General NAD, refused physical exam ASSESSMENT AND PLAN: 33yo F wtih PMH CKD due to atrophic kidney, HBV, and continuous polysubstance abuse sent to the ER from [facility] due to hypotension and AYSE and found to be hyperkalemic 1. Hypotension- no longer hypotensive. possible methadone was contribting to this and dehydration. likely runs low at baseline as patient is noted to be thin 2. Acute oN CKD- due to hypoperfusion and NSAID. significant improvement. now agreeable to re-starting IVF. will run low dose. nephro on board 3. Hyperkalemia- due to renal failure. s/p medical management. kayxylate given again today. low potassium diet. 4. hypomagnesemia- would not supplement this time as this can worsen hyperkalemia. 5. normocytic anemia- no reports of bleeding. stable. can check iron studies. no indication for transfusion 6. Continuous polysubstance abuse- CIWA0 /COWS 0 . was on librium/methadone protocol at [facility] when admitted 08/23 but seems librium was not continued here. was placed on librium prn however has not received any doses. will d/c at this time as no active signs of withdrawal. on methadone taper? got methadone 10mg for past 2 days. will reduce to 5mg tomorrow and then stop. pt refused to speak with detox specialist. states she wants to go back to [facility]. explained she will not require detox that should complete tomorrow. will attempt to get rehab bed but if none are available will have to go home 7. DVT ppx- hep sq 8. can d/c cardiac monitoring. plan to return to [facility] vs Home tomorrow. verbalized understanding
[2018-08-26] MEDS ORDERED: MAGNESIUM OXIDE 400 MG TABLET (FP) PO ONE (13:01)
--- NOTE | 2018-08-26 13:04 | PN ---
Physical Exam: SUBJECTIVE: Patient seen and examined at bedside. Feeling better today. No overnight events. No new complaints. Denies CP,[place], SOB,abdominal pain, nausea or vomiting.. OBJECTIVE: Vital Signs Period Temp Pulse Resp BP Sys/Torres Pulse Ox Last 24 Hr 97.6 F-98.0 F 69-77 18-18 107-121/55-70 98 GENERAL: awake and aleNormal with no signs of trauma. LUNGS: CTAB, no wheezes, no crackles, no accessory muscle use. HEART: RRR, S1, S2 without murmur, rub or gallop. ABDOMEN: Soft, NTND, NABS, no guarding, no rebound, no hepatosplenomegaly, no masses. EXTREMITIES: 2+ pulses, warm, well-perfused, trace edema. NEUROLOGICAL: Cranial nerves II through XII grossly intact. Normal speech, gait not observed. Laboratory Results - last 24 hr 08/25/18 08/26/18 08/26/18 17:45 06:45 06:45 WBC 7.9 RBC 2.89 L Hgb 8.3 L Hct 25.4 L MCV 88.0 MCH 28.7 MCHC 32.6 RDW 14.0 Plt Count 315 MPV 7.8 Absolute Neuts (auto) 5.9 Neutrophils % 75.6 Lymphocytes % 15.7 Monocytes % 5.3 Eosinophils % 2.8 Basophils % 0.6 Nucleated RBC % 0 Sodium 138 137 Potassium 5.0 5.8 H Chloride 102 103 Carbon Dioxide 26 29 Anion Gap 11 5 L BUN 37 H 31 H Creatinine 2.7 H 2.1 H Creat Clearance w eGFR 20.42 27.29 Random Glucose 94 119 H Calcium 7.9 L 8.6 Phosphorus 2.7 Magnesium 1.5 L Creatine Kinase 08/26/18 06:45 WBC RBC Hgb Hct MCV MCH MCHC RDW Plt Count MPV Absolute Neuts (auto) Neutrophils % Lymphocytes % Monocytes % Eosinophils % Basophils % Nucleated RBC % Sodium Potassium Chloride Carbon Dioxide Anion Gap BUN Creatinine Creat Clearance w eGFR Random Glucose Calcium Phosphorus Magnesium Creatine Kinase 44 Active Medications Generic Name Dose Route Start Last Admin Trade Name Freq PRN Reason Stop Dose Admin Bacitracin 1 applic 08/25/18 02:30 08/26/18 09:20 Bacitracin - TP 1 applic DAILY EMERALD Administration Heparin Sodium (Porcine) 5,000 unit 08/24/18 22:15 11/21/18 13:57 Heparin - SQ Not Given TID EMERALD Sodium Chloride 1,000 mls @ 100 mls/hr 08/25/18 14:00 08/26/18 09:33 Normal Saline - IV 100 mls/hr ASDIR EMERALD Administration Methadone HCl 10 mg 08/25/18 11:30 08/26/18 06:18 Dolophine - PO 10 mg DAILY@0600 EMERALD Administration Ondansetron HCl 4 mg 08/25/18 01:58 Zofran Injection IVPUSH Q6H PRN NAUSEA ASSESSMENT/PLAN: 33 yo f with pmhx of polysubstance abuse sent from [facility] and admitted for hypotension and hyperkalemia. Problem List - Problems (1) Acute on chronic kidney failure Assessment/Plan: most likely 2/2 hypoperfusion * appreciated Nephro consult. * check urine for FeNa, UPCR, Urine Eos * Check Renal US to confirm atrophic or absent kidney * Continue istonic IVF at 100cc per hour * Trend serum K Q12h * Low potassium diet * Keep MAP > 65 Qualifiers: (2) Hyperkalemia Assessment/Plan: given Kayexelate. * renal diet * trend K+ (3) Hyponatremia Assessment/Plan: IVF with NS * repeat BMP. (4) Polysubstance abuse Assessment/Plan: Will need addictive medicine consult. * Methadone 10mg daily * librium 25mg PO PRN for agitation/withdrawl (5) Anemia Assessment/Plan: drop in H/H from admission * No signs of overt bleed. * FOBT * trend H/H * normal transfusion thresholds. Visit type - Emergency Visit Emergency Visit: Yes ED Registration Date: 08/24/18 Care time: The patient presented to the Emergency Department on the above date and was hospitalized for further evaluation of their emergent condition. - New Patient This patient is new to me today: No - Critical Care Critical Care patient: No
[2018-08-26] MEDS: HEPARIN NA (PORCINE) 5,000 UNITS/ML 1ML VIAL SQ SCH ×3 (14:12→21:10)
--- NOTE | 2018-08-26 14:35 | CON.CARD ---
Consult Consult Specialty:: Cardiology Referred by:: Hospitalist Reason for Consultation:: hypotension, hyperkalemia - History of Present Illness Chief Complaint: sent from [facility] History of Present Illness: 33yo F wtih PMH CKD due to atrophic kidney, HBV, and continuous polysubstance abuse sent to the ER from [facility] due to hypotension and AYSE and found to be hyperkalemic. pt seen and examined today in [facility]. denies chest pain sob, palpitations, no lightheadedness, dizziness, syncope, near syncope, no pnd, orthopnea, le edema. - History Source History Provided By: Patient, Medical Record Limitations to Obtaining History: No Limitations - Past Medical History ...LMP: 08/04/18 - Alcohol/Substance Use Hx Alcohol Use: Yes - Smoking History Smoking history: Current every day smoker Have you smoked in the past 12 months: Yes Aproximately how many cigarettes per day: 10 - Social History ADL: Independent History of Recent Travel: No Home Medications - Allergies Allergies/Adverse Reactions: Allergies Allergy/AdvReac Type Severity Reaction Status Date / Time amoxicillin Allergy Severe Hives Verified 08/23/18 20:50 Penicillins Allergy Severe Swelling Verified 08/23/18 20:50 - Home Medications Home Medications: Ambulatory Orders Acetaminophen [Tylenol] 650 mg PO Q4H PRN 08/24/18 Chlordiazepoxide [Librium -] 10 mg PO Q6HPO 08/24/18 Chlordiazepoxide [Librium -] 15 mg PO Q6HPO 08/24/18 Chlordiazepoxide [Librium -] 25 mg PO Q4H PRN 08/24/18 Chlordiazepoxide [Librium -] 25 mg PO Q6HPO 08/24/18 Chlordiazepoxide [Librium -] 50 mg PO Q6HPO 08/24/18 Ferrous Sulfate [Feosol] 325 mg PO DAILY 08/24/18 Guaifenesin Dm [Robitussin Dm -] 10 ml PO Q6H PRN 08/24/18 Ibuprofen [Motrin -] 400 mg PO PRN PRN 08/24/18 Loperamide HCl [Imodium -] 4 mg PO Q6H PRN 08/24/18 Mag Hydrox/Al Hydrox/Simeth [Mylanta *Suspension*] 30 ml PO Q6H PRN 08/24/18 Magnesium Citrate [Citroma -] 300 ml PO Q48H PRN 08/24/18 Magnesium Hydrox 2400MG/30Ml [Milk of Magnesia -] 30 ml PO ONCE PRN 08/24/18 Melatonin 5 mg PO HS PRN 08/24/18 Menthol/Phenol [Cepastat Lozenge -] 1 each MM Q4H PRN 08/24/18 Methadone (Detox) [Dolophine -] 10 mg PO DAILY 08/24/18 Methadone (Detox) [Dolophine -] 15 mg PO DAILY 08/24/18 Methadone (Detox) [Dolophine -] 20 mg PO DAILY 08/24/18 Nicotine Patch [Nicoderm Patch -] 1 patch TD DAILY 08/24/18 Nicotine Polacrilex [Nicorette] 2 mg BC Q2H PRN 08/24/18 Pnv No.95/Ferrous Fum/Folic AC [ Vitamin Tablet] 1 each PO DAILY Thiamine HCl [Vitamin B1] 100 mg PO HS 08/24/18 Family Disease History - Family Disease History Family History: Denies Review of Systems - Review of Systems Constitutional: denies: No Symptoms, Chills, Diaphoresis, Fever, Lethargy, Loss of Appetite, Malaise, Night Sweats, Unintentional Wgt. Loss, Weakness, Other Eyes: denies: No Symptoms, Blind Spots, Blurred Vision, Double Vision, Eye Pain , Floaters, Photophobia, Recent Change in Vision, Other HENT: denies: No Symptoms, Difficult Swallowing, Ear Discharge, Ear Pain, Epistaxis, Gingival Bleeding, Hearing Loss, Mouth Swelling, Nasal Congestion, Ocular Prosthesis, Throat Pain, Toothache, Ringing in Ears, Other Neck: denies: No Symptoms, Decreased ROM, Lumps, Pain on Movement, Stiffness, Swollen Glands, Tenderness, Other Cardiovascular: denies: No Symptoms, Chest Pain, Edema, Palpitations, Shortness of Breath, Other Respiratory: denies: No Symptoms, Cough, Exercise Intolerance, Hemoptysis, Orthopnea, PND, Snoring, SOB, SOB on Exertion, Wheezing, Other Gastrointestinal: denies: No Symptoms, Abdominal Pain, Bloating, Constipation, Diarrhea, Dysphagia, Indigestion, Melena, Nausea, Rectal Bleeding, Vomiting, Vomiting Blood, Other Genitourinary: denies: No Symptoms, Burning, Discharge, Dysuria, Flank Pain, Frequency, Hematuria, Incontinence, Lesions, Menses, Pain, Testicular Mass, Testicular Pain, Testicular Swelling, Urgency, Vaginal Bleeding, Other Breasts: denies: No Symptoms Reported, See HPI, Breast Implants, Discharge from Nipple, Lumps, Pain, Skin Changes, Other Musculoskeletal: denies: No Symptoms, Back Pain, Crepitus, Decreased ROM, Extremity Pain, Joint Pain, Joint Swelling, Muscle Pain, Muscle Cramps, Muscle Weakness, Other Integumentary: denies: No Symptoms, Blister, Bruising, Change in Color, Eczema, Erythema, Incision, Lesions, Lump, Pallor, Pruritis, Rash, Wound, Other Neurological: denies: No Symptoms, Change in LOC, Change in Speech, Confusion, Dizziness, Headache, Incoordination, Numbness, Parasthesia, Pre-Existing Deficit , Seizure, Syncope, Tremors, Unsteady Gait, Weakness, Other Endocrine: denies: No Symptoms, Excessive Sweating, Flushing, Increased Hunger, Increased Thirst, Intolerance to Cold, Intolerance to Heat, Unexplained Weight Gain, Unexplained Weight Loss, Other Hematology/Lymphatic: denies: No Symptoms, Easily Bruised, Excessive Bleeding, Swollen Glands, Other Psychiatric: denies: No Symptoms, Altered Sleep Pattern, Anxiety, Depression, Hallucinations, Panic, Paranoia, Suicidal, Other Vital Signs: Vital Signs Temperature 98.5 F 08/26/18 10:00 Pulse Rate 75 08/26/18 10:00 Respiratory Rate 18 08/26/18 10:00 Blood Pressure 104/60 08/26/18 10:00 O2 Sat by Pulse Oximetry (%) 100 08/26/18 09:00 Constitutional: Yes: No Distress, Anxious Eyes: Yes: Conjunctiva Clear, EOM Intact, PERRL HENT: Yes: Atraumatic, Normocephalic Neck: Yes: Supple, Trachea Midline Respiratory: Yes: Regular, CTA Bilaterally. No: Rales, Rhonchi, SOB, Wheezes Gastrointestinal: Yes: Normal Bowel Sounds, Soft. No: Distention, Tenderness Cardiovascular: Yes: Regular Rate and Rhythm. No: Bradycardia, Tachycardia, Pulse Irregular, Gallop, Rub, Varicosities JVD: No Carotid Bruit: No PMI: Non-Displaced Heart Sounds: Yes: S1, S2. No: Split S2, S3, S4, Clicks, Gallop, Rub, Bruit Murmur: No: Systolic Murmur, Diastolic Murmur Extremities: Yes: WNL Edema: No Peripheral Pulses WNL: Yes Peripheral Pulses: 2+ Left Doralis Pedis, 2+ Right Dorsalis Pedis Neurological: Yes: Alert, Oriented Psychiatric: Yes: Alert, Oriented - Other Data Labs, Other Data: CBC, BMP 08/26/18 06:45 08/26/18 06:45 nsr 69bpm, nsst Imaging - Results Chest X-ray: Report Reviewed, Image Reviewed EKG: Report Reviewed, Image Reviewed Other: Report Reviewed, Image Reviewed (tele-sinus scooby, nsr, no arrhythmias) Assessment/Plan 33yo F wtih PMH CKD due to atrophic kidney, HBV, and continuous polysubstance abuse sent to the ER from [facility] due to hypotension and AYSE and found to be hyperkalemic. Hyperkalemia and hypotension -does not appear cardiac related -no arrhythmias on tele overnight -BP improved -treat hyperkalemia -IVF as needed -can dc tele -no other inpatient cardiac work up needed at this time. Please call with any additional questions.
[2018-08-26] MEDS ORDERED: ONDANSETRON 4 MG/2 ML VIAL IVPUSH PRN (15:04)
[2018-08-27] MEDS: METHADONE HCL 5 MG TABLET PO SCH (06:29)
[2018-08-27] MEDS: HEPARIN NA (PORCINE) 5,000 UNITS/ML 1ML VIAL SQ SCH ×3 (06:29→23:01)
[2018-08-27] MEDS: BACITRACIN 15 GM TUBE TOPICAL OINTMENT TP SCH (10:59)
[2018-08-27 14:10] LABS: METHANOL, BLOOD Negative % (0.000-0.010)
--- NOTE | 2018-08-27 14:43 | PN ---
Progress Note, Physician Chief Complaint: The patient seen in her room. Eating lunch. Nurse in attendance. Seems agitated. Says she is feeling better. History of Present Illness: 33 year old white woman with hx of CKD (athropic Kidney as per patient), polysubstance abuse (heroin, ETOH), Hepatitis B, Hx of hyperkalmeia with paralysis presented from outpatient rehab with hypotension and acute renal injury. Pt reports that her renal function is not normal but cannot quantify. She does not follow with a fraternity adviser. She reports both her sister and mother has a history of CKD with one small kidney. Denies any flank pain, hematuria, dysuria, N/V/D. - Current Medication List Current Medications: Active Medications Bacitracin (Bacitracin -) 1 applic TP DAILY [facility] Last Admin: 08/27/18 10:59 Dose: Not Given Heparin Sodium (Porcine) (Heparin -) 5,000 unit SQ TID [facility] Last Admin: 08/27/18 14:35 Dose: Not Given Sodium Chloride (Normal Saline -) 1,000 mls @ 100 mls/hr IV ASDIR [facility] Last Admin: 08/26/18 19:02 Dose: Not Given Methadone HCl (Dolophine -) 5 mg PO DAILY@0600 [facility] Last Admin: 08/27/18 06:29 Dose: 5 mg Ondansetron HCl (Zofran Injection) 4 mg IVPUSH Q6H PRN PRN Reason: NAUSEA - Objective Vital Signs: Vital Signs Temperature 98.7 F 08/27/18 10:43 Pulse Rate 64 08/27/18 10:43 Respiratory Rate 20 08/27/18 10:43 Blood Pressure 100/62 08/27/18 10:43 O2 Sat by Pulse Oximetry (%) 100 08/27/18 11:00 Constitutional: Yes: Anxious, Pallor Eyes: Yes: Conjunctiva Clear HENT: Yes: Normocephalic Neck: Yes: Trachea Midline Cardiovascular: Yes: Regular Rate and Rhythm, Pulse Irregular Respiratory: Yes: CTA Bilaterally Gastrointestinal: Yes: Normal Bowel Sounds, Soft Edema: No Neurological: Yes: Alert, Oriented Labs: CBC, BMP 08/26/18 06:45 08/26/18 06:45 Assessment/Plan 33 year old white woman with hx of CKD (athropic Kidney as per patient), polysubstance abuse (heroin, ETOH), Hepatitis B, Hx of hyperkalmeia with paralysis presented from outpatient rehab with hypotension and acute renal injury. Pt reports that her renal function is not normal but cannot quantify. She does not follow with a fraternity adviser. She reports both her sister and mother has a history of CKD with one small kidney. Denies any flank pain, hematuria, dysuria, N/V/D. No CP, SOB, Abd pain, fever or chills. AYSE on CKD from volume depletion +/- NSAID induced ATN vs. 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 Renal function improving. K remains high. Received Kayexelate yesterday. No labs since yesterday. Will order fro tomorrow. Maintain on low potassium diet. Trend renal function and electrolytes Thank you. Alina Zavala MD
[2018-08-27] MEDS ORDERED: ACETAMINOPHEN 1000 MG/100 ML VIAL (NON FORMULARY) IVPB ONE (15:08)
[2018-08-27] MEDS ORDERED: METHADONE HCL 10 MG TABLET PO ONE (15:14)
--- NOTE | 2018-08-27 15:19 | RAPID ---
Physical Examination Vital Signs: Vital Signs Temperature 98.7 F 08/27/18 10:43 Pulse Rate 64 08/27/18 10:43 Respiratory Rate 20 08/27/18 10:43 Blood Pressure 100/62 08/27/18 10:43 O2 Sat by Pulse Oximetry (%) 100 08/27/18 11:00 Findings/Remarks: Called to rapid response as patient became very aggitated and screaming. She states she feels very cold and pain all over. Denies CP, CULVER,SOB, abdominal pain , nausea or vomiting. Constitutional: Yes: Moderate Distress Cardiovascular: Yes: Tachycardia Respiratory: Yes: CTA Bilaterally Gastrointestinal: Yes: Normal Bowel Sounds Neurological: Yes: Other Psychiatric: Yes: Agitated Labs: CBC, BMP 08/26/18 06:45 08/26/18 06:45 Rapid Response - Rapid Response Assessment: Most likely withdrawl from heroin addiction. * tapered dose of methadone today. * DId not tolerate lower dose. * Will given additional 5mg Methadone now.
[2018-08-27] MEDS: SODIUM CHLORIDE 1,000 ML IV SCH (15:24)
--- NOTE | 2018-08-27 17:05 | PN ---
Teaching Attending Note Name of Resident: Kiet Mcdonald ATTENDING PHYSICIAN STATEMENT I saw and evaluated the patient. I reviewed the resident's note and discussed the case with the resident. I agree with the resident's findings and plan as documented. SUBJECTIVE: Is in no distress at this time. OBJECTIVE: She has increased speech pressure, FLIGHT OF IDEA CVS:S1S2 CTAB Abd:BS+NT/ND ASSESSMENT AND PLAN: CKD and likely AYSE with prerenal etiology and possible ATN. is improving, will monitor Hyponatremia: improved, with IV fluids: unclear etiology, if recurrent will send thyroid test, aldestron test with hyper K and hyponatremia with hypotension. Hyperkalemia:she is getting Suha oxalate, possible in the setting of AYSE but her AYSE is improving at this time, will send urine k, urine Cr to evaluate for TTKG Manic episode: She states that she has had HX of bipolar disorder and she used to be on medication but she has stopped them . Will ask psych to evaluate her for manic episode., will check TFT. Opioid withdrawal: Will C/W methadone dose of 10 mg daily while in the hospital Anemia:microcytic-hypochromic: she states that she dose not have very heavy menstruation periods but she is not reliable, will send Iron studies, retic count, will start on Iron supplements Low albumin:unclear why, can be in the setting of malnutrition but she does not look malnurished: will ask nutrition consult, could be also due to proteinuria in the setting of renal disease, will check for proteinuria. FC DVT ppx: LOVENOX SQ diet: RENAL CBCD WBC 7.9 K/mm3 (4.0-10.0) 08/26/18 06:45 RBC 2.89 M/mm3 (3.60-5.2) L 08/26/18 06:45 Hgb 8.3 GM/dL (10.7-15.3) L 08/26/18 06:45 Hct 25.4 % (32.4-45.2) L 08/26/18 06:45 MCV 88.0 fl (80-96) 08/26/18 06:45 MCHC 32.6 g/dl (32.0-36.0) 08/26/18 06:45 RDW 14.0 % (11.6-15.6) 08/26/18 06:45 Plt Count 315 K/MM3 (134-434) 08/26/18 06:45 MPV 7.8 fl (7.5-11.1) 08/26/18 06:45 CMP Sodium 137 mmol/L (136-145) 08/26/18 06:45 Potassium 5.8 mmol/L (3.5-5.1) H 08/26/18 06:45 Chloride 103 mmol/L (98-107) 08/26/18 06:45 Carbon Dioxide 29 mmol/L (21-32) 08/26/18 06:45 Anion Gap 5 MMOL/L (8-16) L 08/26/18 06:45 BUN 31 mg/dL (7-18) H 08/26/18 06:45 Creatinine 2.1 mg/dL (0.55-1.3) H 08/26/18 06:45 Creat Clearance w eGFR 27.29 (>60) 08/26/18 06:45 Calcium 8.6 mg/dL (8.5-10.1) 08/26/18 06:45 Total Bilirubin 0.3 mg/dL (0.2-1) 08/25/18 06:15 AST 6 U/L (15-37) L 08/25/18 06:15 ALT 9 U/L (13-61) L 08/25/18 06:15 Alkaline Phosphatase 71 U/L (45-117) 08/25/18 06:15 Total Protein 6.1 g/dl (6.4-8.2) L 08/25/18 06:15 Albumin 2.2 g/dl (3.4-5.0) L 08/25/18 06:15 Laboratory Tests 08/24/18 08/25/18 08/25/18 17:50 06:15 17:45 Sodium 130 L Potassium 5.6 H 5.0 BUN 61 H Creatinine 5.3 H Calcium 8.4 L AST 8 L 6 L Albumin 2.2 L 08/26/18 06:45 Sodium 137 Potassium 5.8 H BUN 31 H Creatinine 2.1 H Calcium 8.6 AST Albumin
[2018-08-27] MEDS: ACETAMINOPHEN 325 MG TABLET (FP) PO PRN (17:35)
[2018-08-27] MEDS ORDERED: PT OWN MED DRAWER 7, Y5N ONE (17:44)
--- NOTE | 2018-08-27 17:59 | PN ---
Physical Exam: SUBJECTIVE: Patient seen and examined at bedside. Experiencing withdrawal symptoms. No overnight events. No new complaints. Denies CP,[place], SOB,abdominal pain, nausea or vomiting.. OBJECTIVE: Vital Signs Period Temp Pulse Resp BP Sys/Torres Pulse Ox Last 24 Hr 97.6 F-98.0 F 69-77 18-18 107-121/55-70 98 GENERAL: awake and aleNormal with no signs of trauma. LUNGS: CTAB, no wheezes, no crackles, no accessory muscle use. HEART: RRR, S1, S2 without murmur, rub or gallop. ABDOMEN: Soft, NTND, NABS, no guarding, no rebound, no hepatosplenomegaly, no masses. EXTREMITIES: 2+ pulses, warm, well-perfused, trace edema. NEUROLOGICAL: Cranial nerves II through XII grossly intact. Normal speech, gait not observed. Laboratory Results - last 24 hr 08/25/18 07:40 Methyl Alcohol Level Negative Active Medications Generic Name Dose Route Start Last Admin Trade Name Freq PRN Reason Stop Dose Admin Acetaminophen 650 mg 08/27/18 15:19 08/27/18 17:35 Tylenol - PO 650 mg Q4H PRN Administration PAIN LEVEL 6-10 Bacitracin 1 applic 08/27/18 10:00 08/27/18 10:59 Bacitracin - TP Not Given DAILY [facility] Heparin Sodium (Porcine) 5,000 unit 08/26/18 22:00 08/27/18 14:35 Heparin - SQ Not Given TID [facility] Sodium Chloride 1,000 mls @ 100 mls/hr 08/26/18 15:04 08/27/18 15:24 Normal Saline - IV Not Given ASDIR [facility] Methadone HCl 5 mg 08/26/18 14:08 08/27/18 06:29 Dolophine - PO 5 mg DAILY@0600 [facility] Administration Ondansetron HCl 4 mg 08/26/18 15:04 Zofran Injection IVPUSH Q6H PRN NAUSEA ASSESSMENT/PLAN: 33 yo f with pmhx of polysubstance abuse sent from [facility] and admitted for hypotension and hyperkalemia. Problem List - Problems (1) Acute on chronic kidney failure Assessment/Plan: most likely 2/2 hypoperfusion * appreciated Nephro consult. * checked urine for FeNa, UPCR, Urine Eos * Check Renal US to confirm atrophic or absent kidney- patient has refused * Trend serum K Q12h * Low potassium diet * Keep MAP > 65 Qualifiers: (2) Hyperkalemia Assessment/Plan: given Kayexelate. * renal diet * trend K+ (3) Hyponatremia Assessment/Plan: IVF with NS * repeat BMP. (4) Polysubstance abuse Assessment/Plan: Will need addictive medicine consult. * Methadone 10mg daily * librium 25mg PO PRN for agitation/withdrawl (5) Anemia Assessment/Plan: drop in H/H from admission * No signs of overt bleed. * FOBT * trend H/H * normal transfusion thresholds. Visit type - Emergency Visit Emergency Visit: Yes ED Registration Date: 08/24/18 Care time: The patient presented to the Emergency Department on the above date and was hospitalized for further evaluation of their emergent condition. - New Patient This patient is new to me today: No - Critical Care Critical Care patient: No
[2018-08-27] MEDS ORDERED: SODIUM CHLORIDE 0.9% 500 ML INFUS.BAG IV ONE (21:22)
[2018-08-28] MEDS: HEPARIN NA (PORCINE) 5,000 UNITS/ML 1ML VIAL SQ SCH ×3 (06:12→21:21)
[2018-08-28] MEDS: METHADONE HCL 5 MG TABLET PO SCH (06:13)
--- NOTE | 2018-08-28 08:11 | PN ---
Progress Note (short form) - Note Progress Note: Renal follow up for AYSE on CKD Pt seen and examined at the bedside no acute complaints overnight events reviewed s/p Us this am no sob, cp, abd pain, N/V/D Vital Signs Temperature 97.5 F L 08/28/18 06:00 Pulse Rate 64 08/28/18 06:00 Respiratory Rate 20 08/28/18 06:00 Blood Pressure 97/55 L 08/28/18 06:00 O2 Sat by Pulse Oximetry (%) 100 08/27/18 21:00 Intake & Output 08/25/18 08/26/18 08/27/18 08/28/18 23:59 23:59 23:59 23:59 Intake Total 3072 601 1053 Output Total 500 Balance 1500 450 800 Weight 73.936 kg NAD no Le edema CBC, BMP 08/26/18 06:45 08/26/18 06:45 Current Medications Acetaminophen (Tylenol -) 650 mg PO Q4H PRN PRN Reason: PAIN LEVEL 6-10 Last Admin: 08/27/18 17:35 Dose: 650 mg Bacitracin (Bacitracin -) 1 applic TP DAILY [facility] Last Admin: 08/27/18 10:59 Dose: Not Given Heparin Sodium (Porcine) (Heparin -) 5,000 unit SQ TID [facility] Last Admin: 08/28/18 06:12 Dose: Not Given Sodium Chloride (Normal Saline -) 1,000 mls @ 100 mls/hr IV ASDIR [facility] Last Admin: 08/27/18 15:24 Dose: Not Given Methadone HCl (Dolophine -) 5 mg PO DAILY@0600 [facility] Last Admin: 08/28/18 06:13 Dose: 5 mg Ondansetron HCl (Zofran Injection) 4 mg IVPUSH Q6H PRN PRN Reason: NAUSEA 33 year old white woman with hx of CKD (athropic Kidney as per patient), polysubstance abuse (heroin, ETOH), Hepatitis B, Hx of hyperkalmeia with paralysis presented from outpatient rehab with hypotension and acute renal injury. #AYSE on CKD from volume depletion +/- NSAID induced ATN vs. 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
--- NOTE | 2018-08-28 10:01 | PN ---
Physical Exam: SUBJECTIVE: Opioid withdrawal hypotension renal failure She has had another episode of hypotension last night no related to her methadone dose, she has no IV line and is refusing IV line, also refusing lovenox SQ, she has also refused BMP today, her BP had improved spontaneously with no intervention, she also had vomited once last night OBJECTIVE: She is sitting in her bed, has no complaints at this time. CVS:S1S2 CTAB Abd:BS+ NT/ND EXT: NO EDEMA She is still manic episodes. skin dry Vital Signs Period Temp Pulse Resp BP Sys/Torres Pulse Ox Last 24 Hr 97.5 F-99.7 F 63-109 20-20 82-130/39-80 100-100 Laboratory Results - last 24 hr 08/25/18 08/27/18 07:40 19:36 Urine Protein 14 H Ethylene Glycol None detected Methyl Alcohol Level Negative Active Medications Generic Name Dose Route Start Last Admin Trade Name Freq PRN Reason Stop Dose Admin Acetaminophen 650 mg 08/27/18 15:19 08/27/18 17:35 Tylenol - PO 650 mg Q4H PRN Administration PAIN LEVEL 6-10 Bacitracin 1 applic 08/27/18 10:00 08/27/18 10:59 Bacitracin - TP Not Given DAILY [facility] Heparin Sodium (Porcine) 5,000 unit 08/26/18 22:00 08/28/18 06:12 Heparin - SQ Not Given TID [facility] Sodium Chloride 1,000 mls @ 100 mls/hr 08/26/18 15:04 08/27/18 15:24 Normal Saline - IV Not Given ASDIR [facility] Methadone HCl 5 mg 08/26/18 14:08 08/28/18 06:13 Dolophine - PO 5 mg DAILY@0600 [facility] Administration Ondansetron HCl 4 mg 08/26/18 15:04 Zofran Injection IVPUSH Q6H PRN NAUSEA ASSESSMENT/PLAN: She is a 33 y/o f with opioid abuse, known CKD, bipolar mood disorder P/W detox with an episode of hypotension, in the hospital foun to have renal failure, hyperkalemia, hyponatremia. SHe has been refusing blood work at this time Hypotension, hyponatremia, hyperkalemia: I am concern about hypoaldestronism at this time, also is to be evlauated for thyroid disorder, But she is refusing labs TFT, aldosteron, renin, chortizol levels( she is refusing) sending urine k, na, Cr( not sent yest) elsie ask nephrology as well as endocrinilogy to evlauate the pattient Manic episode and HX of bipolar disorder: [facility] Opiod withdrawal: wilL C/W methadone 5 mg bid Anemia: she denies heavy mensuration periods ( pood historian), can be in the setting of renal failure as well, will send retic count, Iron studies dvt ppx:lovenox diet: renal fc dISPO: BACK TO REHAB WHEN STABLE Visit type - Emergency Visit Emergency Visit: Yes ED Registration Date: 08/24/18 Care time: The patient presented to the Emergency Department on the above date and was hospitalized for further evaluation of their emergent condition. - New Patient This patient is new to me today: No - Critical Care Critical Care patient: No - Discharge Referral Referred to [facility] Med P.C.: Yes
[2018-08-28] MEDS: ACETAMINOPHEN 325 MG TABLET (FP) PO PRN (11:49)
[2018-08-28] MEDS ORDERED: ONDANSETRON 4 MG TABLET PO ONE (13:08)
[2018-08-28] MEDS: ONDANSETRON 8 MG TABLET (FP) PO PRN (13:09)
--- NOTE | 2018-08-28 13:25 | CON.PSY ---
Psychiatry Consult Chief Complaint: I dont need a Psychiatrist, I told then that> I am ok, I dont take any medications. - Previous Psychiatric Treatment Outpatient: More than 6 mos ago Inpatient: One prior admission - Previous Substance Abuse Treatment Outpatient: Less than 6 mos ago - Reason for Previous Treatment Reason for Previous Treatment: Biploar Illness, Heroin or Other Narcotics - Current Medications Current Medications: Active Medications Acetaminophen (Tylenol -) 650 mg PO Q4H PRN PRN Reason: PAIN LEVEL 6-10 Last Admin: 08/28/18 11:49 Dose: 650 mg Bacitracin (Bacitracin -) 1 applic TP [facility] Last Admin: 08/27/18 10:59 Dose: Not Given Heparin Sodium (Porcine) (Heparin -) 5,000 unit SQ TID [facility] Last Admin: 08/28/18 06:12 Dose: Not Given Sodium Chloride (Normal Saline -) 1,000 mls @ 100 mls/hr IV [facility]IR [facility] Last Admin: 08/27/18 15:24 Dose: Not Given Methadone HCl (Dolophine -) 5 mg PO DAILY@0600 [facility] Last Admin: 08/28/18 06:13 Dose: 5 mg Ondansetron HCl (Zofran -) 8 mg PO Q8H PRN PRN Reason: NAUSEA Last Admin: 08/28/18 13:09 Dose: 8 mg - Allergies Allergies: Allergies Allergy/AdvReac Type Severity Reaction Status Date / Time amoxicillin Allergy Severe Hives Verified 08/23/18 20:50 Penicillins Allergy Severe Swelling Verified 08/23/18 20:50 - Current Living Status Usual Living Arrangement: Alone - Current Mental Status Evaluation Appearance: Disheveled Attitude: Cooperative - Affect Affect: Constrictive - Speech/Language Expressive: Coherent - Psychomotor Activity Psychomotor Activity: Normal - Thought Process Thought Process: Intact - Thought Content Hallucinations: Absent Delusions: Absent - Self Perception Self Perception: No Impairment - Cognition Attention: Alert Orientation: Time Memory, Immediate Recall: Intact Memory, Short Term: 3/3 Memory, Remote with Promptin/3 - Concentration Serial Sevens Intact: Yes Simple Calculations Intact: Yes - Abstraction Proverb Interpretation: Intact Judgement: Minimally Impaired - Insight Insight: Intact - Impulse Control Impulse Control: Good Control - Suicidal Ideation Suicidal Ideation: No - Homicidal Ideation Homicidal Ideation: No Assessment/Plan 1) No psych meds.
--- NOTE | 2018-08-28 13:45 | PN ---
Progress Note (short form) - Note Progress Note: Evaluated the patient she is diaphoretic, tachycardic, she is withdrawing at this time. Will give Ativan Po. Will also increase the dose of methadone for her Visit type - Emergency Visit Emergency Visit: Yes ED Registration Date: 08/24/18 Care time: The patient presented to the Emergency Department on the above date and was hospitalized for further evaluation of their emergent condition. - New Patient This patient is new to me today: No - Critical Care Critical Care patient: No - Discharge Referral Referred to [facility] Med P.C.: No
[2018-08-28] MEDS: LORazepam 1 MG TABLET PO PRN (13:58)
[2018-08-28] MEDS: BACITRACIN 15 GM TUBE TOPICAL OINTMENT TP SCH (14:00)
[2018-08-28] MEDS: SODIUM CHLORIDE 1,000 ML IV SCH (15:00)
[2018-08-28] MEDS ORDERED: SODIUM CHLORIDE 0.9% 500 ML INFUS.BAG IV ONE (18:59)
[2018-08-28] MEDS ORDERED: SODIUM CHLORIDE 500 ML IV ONE (19:15)
[2018-08-29] MEDS: METHADONE HCL 5 MG TABLET PO SCH (06:20)
[2018-08-29] MEDS: HEPARIN NA (PORCINE) 5,000 UNITS/ML 1ML VIAL SQ SCH ×3 (06:20→21:41)
--- NOTE | 2018-08-29 08:33 | PN ---
Progress Note (short form) - Note Progress Note: Renal follow up for AYSE on CKD Pt seen and examined at the bedside awake and alert no acute complaints no sob, cp, abd pain, N/V/D pt had been refusing blood draws, but said she allowed it this am Vital Signs Temperature 98.3 F 08/29/18 06:00 Pulse Rate 68 08/29/18 06:00 Respiratory Rate 20 08/29/18 06:00 Blood Pressure 101/61 08/29/18 06:00 O2 Sat by Pulse Oximetry (%) 99 08/28/18 21:00 Intake & Output 08/26/18 08/27/18 08/28/18 08/29/18 23:59 23:59 23:59 23:59 Intake Total 450 1300 390 Output Total 500 1400 Balance 450 800 -1010 Weight 73.936 kg NAD awake and alert no LE edema CBC, BMP 08/26/18 06:45 08/26/18 06:45 Current Medications Acetaminophen (Tylenol -) 650 mg PO Q4H PRN PRN Reason: PAIN LEVEL 6-10 Last Admin: 08/28/18 11:49 Dose: 650 mg Bacitracin (Bacitracin -) 1 applic TP DAILY [facility] Last Admin: 08/28/18 14:00 Dose: Not Given Heparin Sodium (Porcine) (Heparin -) 5,000 unit SQ TID [facility] Last Admin: 08/29/18 06:20 Dose: Not Given Sodium Chloride (Normal Saline -) 1,000 mls @ 100 mls/hr IV ASDIR [facility] Last Admin: 08/28/18 15:00 Dose: Not Given Lorazepam (Ativan -) 2 mg PO BID PRN PRN Reason: WITHDRAWAL(CONT SUBST) Last Admin: 08/28/18 13:58 Dose: 2 mg Methadone HCl (Dolophine -) 5 mg PO DAILY@0600 [facility] Last Admin: 08/29/18 06:20 Dose: 5 mg Ondansetron HCl (Zofran -) 8 mg PO Q8H PRN PRN Reason: NAUSEA Last Admin: 08/28/18 13:09 Dose: 8 mg 33 year old white woman with hx of CKD (athropic Kidney as per patient), polysubstance abuse (heroin, ETOH), Hepatitis B, Hx of hyperkalmeia with paralysis presented from outpatient rehab with hypotension and acute renal injury. #AYSE on CKD from volume depletion +/- NSAID induced ATN vs. 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
[2018-08-29] MEDS: BACITRACIN 15 GM TUBE TOPICAL OINTMENT TP SCH (10:00)
[2018-08-29] MEDS: LORazepam 1 MG TABLET PO PRN ×2 (10:30→22:54)
[2018-08-29 12:46] LABS: ALBUMIN 2.4 g/dl (3.4-5.0); ALK PHOS 96 U/L (45-117); ANION GAP 7 MMOL/L (8-16); BILIRUBIN,TOTAL 0.2 mg/dL (0.2-1); BLOOD UREA NITROGEN 37 mg/dL (7-18); CALCIUM 8.5 mg/dL (8.5-10.1); CHLORIDE 101 mmol/L (98-107); CO2 29 mmol/L (21-32); CREATININE 2.4 mg/dL (0.55-1.3); GLUCOSE,RANDOM 79 mg/dL (74-106); MAGNESIUM 1.6 mg/dL (1.8-2.4); PHOSPHOROUS 3.6 mg/dL (2.5-4.9); POTASSIUM 4.9 mmol/L (3.5-5.1); SGOT/AST 10 U/L (15-37); SGPT/ALT 9 U/L (13-61); SODIUM 137 mmol/L (136-145); TOT PROT 6.9 g/dl (6.4-8.2)
--- NOTE | 2018-08-29 15:07 | PN ---
Physical Exam: SUBJECTIVE: Patient seen and examined. She is doing better today, no more episode of withdrawal while getting ativan prn OBJECTIVE: Vital Signs Period Temp Pulse Resp BP Sys/Torres Pulse Ox Last 24 Hr 98.1 F-98.9 F 67-85 20-20 73-103/36-61 99 She is sitting in bed with no distress, MMM No occular discharge No nasal discharge CVS:S1S2 CTAB Abd:BS+ nt/nd EXT: no edema Laboratory Results - last 24 hr 08/29/18 08/29/18 08/29/18 02:30 02:30 10:41 Sodium Potassium Chloride Carbon Dioxide Anion Gap BUN Creatinine Creat Clearance w eGFR Random Glucose Hemoglobin A1c % 5.8 Calcium Phosphorus Magnesium Total Bilirubin AST ALT Alkaline Phosphatase Total Protein Albumin TSH Free T4 Ur Random Sodium 44 Urine Creatinine 46.0 08/29/18 10:59 Sodium 137 Potassium 4.9 Chloride 101 Carbon Dioxide 29 Anion Gap 7 L BUN 37 H Creatinine 2.4 H Creat Clearance w eGFR 23.40 Random Glucose 79 Hemoglobin A1c % Calcium 8.5 Phosphorus 3.6 Magnesium 1.6 L Total Bilirubin 0.2 AST 10 L ALT 9 L Alkaline Phosphatase 96 Total Protein 6.9 Albumin 2.4 L TSH 0.17 L Free T4 1.21 Ur Random Sodium Urine Creatinine Active Medications Generic Name Dose Route Start Last Admin Trade Name Freq PRN Reason Stop Dose Admin Acetaminophen 650 mg 08/27/18 15:19 08/28/18 11:49 Tylenol - PO 650 mg Q4H PRN Administration PAIN LEVEL 6-10 Bacitracin 1 applic 08/27/18 10:00 08/28/18 14:00 Bacitracin - TP Not Given DAILY [facility] Heparin Sodium (Porcine) 5,000 unit 08/26/18 22:00 08/29/18 14:47 Heparin - SQ Not Given TID [facility] Sodium Chloride 1,000 mls @ 100 mls/hr 08/26/18 15:04 08/28/18 15:00 Normal Saline - IV Not Given ASDIR [facility] Lorazepam 2 mg 08/28/18 13:39 08/29/18 10:30 Ativan - PO 2 mg BID PRN Administration WITHDRAWAL(CONT SUBST) Methadone HCl 5 mg 08/26/18 14:08 08/29/18 06:20 Dolophine - PO 5 mg DAILY@0600 [facility] Administration Ondansetron HCl 8 mg 08/28/18 12:57 08/28/18 13:09 Zofran - PO 8 mg Q8H PRN Administration NAUSEA ASSESSMENT/PLAN: She is a 33 y/o f with opioid abuse, known CKD, bipolar mood disorder P/W detox with an episode of hypotension, in the hospital foun to have renal failure, hyperkalemia, hyponatremia. SHe has been refusing blood work at this time Hypotension, hyponatremia, hyperkalemia: I am concern about hypoaldestronism at this time, also is to be evlauated for thyroid disorder, But she is refusing labs TFT, aldosteron, renin, chortizol levels( she is refusing) sending urine k, na, Cr( not sent yest) elsie ask nephrology as well as endocrinilogy to evlauate the pattient Manic episode and HX of bipolar disorder: pending pscyh evaluation and recs Opiod withdrawal: wilL C/W methadone 5 mg bid Anemia: she denies heavy mensuration periods ( poor historian), can be in the setting of renal failure as well, will send retic count, Iron studies dvt ppx:lovenox diet: renal fc dISPO: BACK TO REHAB WHEN STABLE Visit type - Emergency Visit Emergency Visit: Yes ED Registration Date: 08/24/18 Care time: The patient presented to the Emergency Department on the above date and was hospitalized for further evaluation of their emergent condition. - New Patient This patient is new to me today: No - Critical Care Critical Care patient: No - Discharge Referral Referred to [facility] Med P.C.: No
[2018-08-29] MEDS ORDERED: SODIUM CHLORIDE 0.9% 500 ML INFUS.BAG IV ONE (19:35)
--- NOTE | 2018-08-29 19:41 | HOSP ---
Subjective - Review of Symptoms Subjective: RN reports pt BP 78/46, HR 91, afebrile and asymptomatic, IVF NS 500cc bolus ordered,will continue to monitor pt closely. Physical Examination Vital Signs: Vital Signs Temperature 98.9 F 08/29/18 18:00 Pulse Rate 91 H 08/29/18 19:20 Respiratory Rate 20 08/29/18 19:20 Blood Pressure 78/46 L 08/29/18 19:20 O2 Sat by Pulse Oximetry (%) 99 08/29/18 10:00 Labs: CBC, BMP 08/26/18 06:45 08/29/18 10:59
[2018-08-30] MEDS: HEPARIN NA (PORCINE) 5,000 UNITS/ML 1ML VIAL SQ SCH ×3 (05:46→21:04)
[2018-08-30] MEDS: METHADONE HCL 5 MG TABLET PO SCH (06:09)
--- NOTE | 2018-08-30 10:51 | PN ---
Progress Note (short form) - Note Progress Note: Renal follow up for AYSE on CKD Pt seen and examined at the bedside overnight events reviewed complains of chills this am no sob, cp, abd pain tolerating oral diet Vital Signs Temperature 99.9 F H 08/30/18 06:00 Pulse Rate 82 08/30/18 06:00 Respiratory Rate 20 08/30/18 06:00 Blood Pressure 104/51 L 08/30/18 06:00 O2 Sat by Pulse Oximetry (%) 99 08/29/18 21:00 Intake & Output 08/27/18 08/28/18 08/29/18 08/30/18 23:59 23:59 23:59 23:59 Intake Total 1780 647 0546 Output Total 500 1400 200 Balance 800 -1010 1100 NAD awake and alert no edema in LE CBC, BMP 08/26/18 06:45 08/29/18 10:59 Current Medications Acetaminophen (Tylenol -) 650 mg PO Q4H PRN PRN Reason: PAIN LEVEL 6-10 Last Admin: 08/28/18 11:49 Dose: 650 mg Bacitracin (Bacitracin -) 1 applic TP DAILY [facility] Last Admin: 08/29/18 10:00 Dose: Not Given Heparin Sodium (Porcine) (Heparin -) 5,000 unit SQ TID [facility] Last Admin: 08/30/18 05:46 Dose: Not Given Sodium Chloride (Normal Saline -) 1,000 mls @ 100 mls/hr IV ASDIR [facility] Last Admin: 08/28/18 15:00 Dose: Not Given Lorazepam (Ativan -) 2 mg PO BID PRN PRN Reason: WITHDRAWAL(CONT SUBST) Last Admin: 08/29/18 22:54 Dose: 2 mg Methadone HCl (Dolophine -) 5 mg PO DAILY@0600 [facility] Last Admin: 08/30/18 06:09 Dose: 5 mg Ondansetron HCl (Zofran -) 8 mg PO Q8H PRN PRN Reason: NAUSEA Last Admin: 08/28/18 13:09 Dose: 8 mg 33 year old white woman with hx of CKD (athropic Kidney as per patient), polysubstance abuse (heroin, ETOH), Hepatitis B, Hx of hyperkalmeia with paralysis presented from outpatient rehab with hypotension and acute renal injury. #AYSE on CKD from volume depletion +/- NSAID induced ATN vs. 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
[2018-08-30] MEDS: BACITRACIN 15 GM TUBE TOPICAL OINTMENT TP SCH (13:56)
[2018-08-30] MEDS: LORazepam 1 MG TABLET PO PRN (13:56)
[2018-08-30] MEDS: ACETAMINOPHEN 325 MG TABLET (FP) PO PRN (13:59)
[2018-08-30 14:15] LABS: CORTISOL AM 5.8 ug/dL (.)
[2018-08-30] MEDS ORDERED: ONDANSETRON 4 MG TABLET PO ONE (14:35)
[2018-08-30] MEDS: ONDANSETRON 8 MG TABLET (FP) PO PRN (14:37)
--- NOTE | 2018-08-30 14:37 | DS ---
Physical Exam: SUBJECTIVE: Patient seen and examined OBJECTIVE: Vital Signs Period Temp Pulse Resp BP Sys/Torres Pulse Ox Last 24 Hr 98.9 F-99.9 F 77-91 20-20 78-106/43-66 99 PHYSICAL EXAM GENERAL: The patient is awake, alert, and fully oriented, in no acute distress. HEAD: Normal with no signs of trauma. EYES: PERRL, extraocular movements intact, sclera anicteric, conjunctiva clear. ENT: Ears normal, nares patent, oropharynx clear without exudates, moist mucous membranes. NECK: Trachea midline, full range of motion, supple. LUNGS: Breath sounds equal, clear to auscultation bilaterally, no wheezes, no crackles, no accessory muscle use. HEART: Regular rate and rhythm, S1, S2 without murmur, rub or gallop. ABDOMEN: Soft, nontender, nondistended, normoactive bowel sounds, no guarding, no rebound, no hepatosplenomegaly, no masses. EXTREMITIES: 2+ pulses, warm, well-perfused, no edema. NEUROLOGICAL: Cranial nerves II through XII grossly intact. Normal speech, gait not observed. PSYCH: Normal mood, normal affect. SKIN: Warm, dry, normal turgor, no rashes or lesions noted. LABS Laboratory Results - last 24 hr 08/29/18 08/30/18 10:41 07:15 Iron 21 L TIBC 202 L Iron Saturation 10 L Cortisol AM Sample 5.8 Cortisol PM Sample Cancelled HOSPITAL COURSE: Date of Admission:08/24/18 Date of Discharge: 08/30/18 Discharge Summary Reason For Visit: OPIOID DEPENDENCE WITH WITHDRAWAL,RENAL FAILURE Current Active Problems Acute on chronic kidney failure (Acute) Hyperkalemia (Acute) Hyponatremia (Acute) Polysubstance abuse (Acute) Kidney failure (Chronic) Opioid dependence with withdrawal (Chronic) Condition: Improved - Instructions Diet, Activity, Other Instructions: You have been seen a treated for low blood pressure and an increase in potassium in your blood. You can increase your activity as tolerated. Resume a regular diet paying attention to amount on potassium in your diet. You will be going back to [facility] to complete your rehab. Please follow up with your primary doctor after leaving [facility]. If you do not have a primary I have given you a referral to our resident clinic. Referrals: Tanmay Martínez MD [Staff Physician] - Disposition: TRANSFER ACUTE CARE/OTHER HOSP - Home Medications Comprehensive Discharge Medication List: Ambulatory Orders Acetaminophen [Tylenol] 650 mg PO Q4H PRN 08/24/18 Chlordiazepoxide [Librium -] 10 mg PO Q6HPO 08/24/18 Chlordiazepoxide [Librium -] 15 mg PO Q6HPO 08/24/18 Chlordiazepoxide [Librium -] 25 mg PO Q4H PRN 08/24/18 Chlordiazepoxide [Librium -] 25 mg PO Q6HPO 08/24/18 Chlordiazepoxide [Librium -] 50 mg PO Q6HPO 08/24/18 Ferrous Sulfate [Feosol] 325 mg PO DAILY 08/24/18 Guaifenesin Dm [Robitussin Dm -] 10 ml PO Q6H PRN 08/24/18 Ibuprofen [Motrin -] 400 mg PO PRN PRN 08/24/18 Loperamide HCl [Imodium -] 4 mg PO Q6H PRN 08/24/18 Mag Hydrox/Al Hydrox/Simeth [Mylanta Oral Suspension -] 30 ml PO Q6H PRN Magnesium Citrate [Citroma -] 300 ml PO Q48H PRN 08/24/18 Magnesium Hydrox 2400MG/30Ml [Milk of Magnesia -] 30 ml PO ONCE PRN 08/24/18 Melatonin 5 mg PO HS PRN 08/24/18 Menthol/Phenol [Cepastat Lozenge -] 1 each MM Q4H PRN 08/24/18 Methadone (Detox) [Dolophine -] 10 mg PO DAILY 08/24/18 Methadone (Detox) [Dolophine -] 15 mg PO DAILY 08/24/18 Methadone (Detox) [Dolophine -] 20 mg PO DAILY 08/24/18 Nicotine Patch [Nicoderm Patch -] 1 patch TD DAILY 08/24/18 Nicotine Polacrilex [Nicorette] 2 mg BC Q2H PRN 08/24/18 Pnv No.95/Ferrous Fum/Folic AC [ Vitamin Tablet] 1 each PO DAILY Thiamine HCl [Vitamin B1 -] 100 mg PO HS 08/24/18 Problem List - Problems (1) Acute on chronic kidney failure Qualifiers: (2) Hyperkalemia (3) Hyponatremia (4) Polysubstance abuse (5) Anemia - Discharge Referral Referred to [facility] Med P.C.: No
--- NOTE | 2018-08-30 15:45 | PN ---
Teaching Attending Note Name of Resident: Kiet Mcdonald ATTENDING PHYSICIAN STATEMENT I saw and evaluated the patient. I reviewed the resident's note and discussed the case with the resident. I agree with the resident's findings and plan as documented. SUBJECTIVE: C/O bad pain OBJECTIVE: Vital Signs Period Temp Pulse Resp BP Sys/Torres Pulse Ox Last 24 Hr 98.9 F-102.7 F 77-100 18-20 78-106/43-66 99-99 Young F spiked fever not in distress HEENT: Mm moist mild anemia NECK: No JVd No Bruit CHEST: CTA B/L CVS: s1S2 R ABD: Mild epigastric tenderness EXT: No terrance afeet; DRAW OPERATOR: AOX3 base line CBC, BMP 08/26/18 06:45 08/29/18 10:59 MEDS: Active Medications Acetaminophen (Tylenol -) 650 mg PO Q4H PRN PRN Reason: PAIN LEVEL 6-10 Last Admin: 08/30/18 13:59 Dose: 650 mg Bacitracin (Bacitracin -) 1 applic TP DAILY [facility] Last Admin: 08/30/18 13:56 Dose: Not Given Heparin Sodium (Porcine) (Heparin -) 5,000 unit SQ TID [facility] Last Admin: 08/30/18 14:01 Dose: Not Given Sodium Chloride (Normal Saline -) 1,000 mls @ 100 mls/hr IV ASDIR [facility] Last Admin: 08/28/18 15:00 Dose: Not Given Lorazepam (Ativan -) 2 mg PO BID PRN PRN Reason: WITHDRAWAL(CONT SUBST) Last Admin: 08/30/18 13:56 Dose: 2 mg Methadone HCl (Dolophine -) 5 mg PO DAILY@0600 [facility] Last Admin: 08/30/18 06:09 Dose: 5 mg Ondansetron HCl (Zofran -) 8 mg PO Q8H PRN PRN Reason: NAUSEA Last Admin: 08/30/18 14:37 Dose: 8 mg ASSESSMENT AND PLAN:33 yrs old F H/O Hep B, narcotic abuse, admitted with AYSE on CKD with Hyperkalemia and Hypernatremia from Detox program was claered to [facility] by renal spiked fever; Plan; Fever w/u ID consult. Rpt CBC Lactic acid UA CXR Blood cultures Rest cont current management Will call psych to evaluate as patient is refusing labs or any treatment at present.
[2018-08-30] MEDS: SODIUM CHLORIDE 1,000 ML IV SCH (16:08)
--- NOTE | 2018-08-30 18:30 | PN ---
Physical Exam: SUBJECTIVE: Patient seen and examined at bedside. No overnight events. Patient was initially up for discharge today however this afternoon spiked 104 temp rectally. She was agitated and uncooperative. Refusing all treatments. OBJECTIVE: Vital Signs Period Temp Pulse Resp BP Sys/Torres Pulse Ox Last 24 Hr 99.8 F-102.7 F 77-100 18-20 78-106/46-66 99-99 GENERAL:awake and agitated. ENT: moist mucous membranes. LUNGS:CTAB, no wheezes, no crackles, no accessory muscle use. HEART: RRR, S1, S2 without murmur, rub or gallop. ABDOMEN: Soft, mild epigastric tenderness, nondistended, normoactive bowel sounds, no guarding, no rebound, no hepatosplenomegaly, no masses. EXTREMITIES: 2+ pulses, warm, well-perfused, no edema. PSYCH: agitated and uncooperative. Laboratory Results - last 24 hr 08/29/18 08/30/18 10:41 07:15 Iron 21 L TIBC 202 L Iron Saturation 10 L Cortisol AM Sample 5.8 Cortisol PM Sample Cancelled Active Medications Generic Name Dose Route Start Last Admin Trade Name Freq PRN Reason Stop Dose Admin Acetaminophen 650 mg 08/27/18 15:19 08/30/18 13:59 Tylenol - PO 650 mg Q4H PRN Administration PAIN LEVEL 6-10 Bacitracin 1 applic 08/27/18 10:00 08/30/18 13:56 Bacitracin - TP Not Given DAILY [facility] Heparin Sodium (Porcine) 5,000 unit 08/26/18 22:00 08/30/18 14:01 Heparin - SQ Not Given TID [facility] Sodium Chloride 1,000 mls @ 100 mls/hr 08/26/18 15:04 08/30/18 16:08 Normal Saline - IV Not Given ASDIR [facility] Lorazepam 2 mg 08/28/18 13:39 08/30/18 13:56 Ativan - PO 2 mg BID PRN Administration WITHDRAWAL(CONT SUBST) Methadone HCl 5 mg 08/26/18 14:08 08/30/18 06:09 Dolophine - PO 5 mg DAILY@0600 [facility] Administration Ondansetron HCl 8 mg 08/28/18 12:57 08/30/18 14:37 Zofran - PO 8 mg Q8H PRN Administration NAUSEA ASSESSMENT/PLAN: 33 yo f with pmhx of polysubstance abuse sent from [facility] and admitted for hypotension and hyperkalemia. Problem List - Problems (1) Fever Assessment/Plan: fever of 104 rectally- initiate sepsis work up * Blood cultures sent * UA and UC * CBC with diff. * CXR * ID consulted (2) Acute on chronic kidney failure Assessment/Plan: most likely 2/2 hypoperfusion * appreciated Nephro consult. * checked urine for FeNa, UPCR, Urine Eos * Check Renal US to confirm atrophic or absent kidney- patient has refused * Trend serum K Q12h * Low potassium diet * Keep MAP > 65 Qualifiers: (3) Hyperkalemia Assessment/Plan: resolved. * given Kayexelate. * renal diet * trend K+ (4) Hyponatremia Assessment/Plan: resolved. * repeat BMP. (5) Polysubstance abuse Assessment/Plan: Will need addictive medicine consult. * Methadone 10mg daily * librium 25mg PO PRN for agitation/withdrawl * will return to [facility] once stable for rehab. (6) Anemia Assessment/Plan: drop in H/H from admission * most likely multifactorial. * No signs of overt bleed. * FOBT * trend H/H * normal transfusion thresholds. * Iron studies show iron def. anemia. Visit type - Emergency Visit Emergency Visit: Yes ED Registration Date: 08/24/18 Care time: The patient presented to the Emergency Department on the above date and was hospitalized for further evaluation of their emergent condition. - New Patient This patient is new to me today: No - Critical Care Critical Care patient: No
[2018-08-30] MEDS ORDERED: VANCOMYCIN 1 GRAM (PRE-DOCKED) 1,000 MG/250 ML BAG IVPB ONE (18:55)
[2018-08-30] MEDS: AZTREONAM 1 GM in DEXTROSE 5%-WATER - 50 ML IVPB SCH (19:20)
[2018-08-31] MEDS: AZTREONAM 1 GM in DEXTROSE 5%-WATER - 50 ML IVPB SCH ×3 (01:43→14:21)
[2018-08-31] MEDS: METHADONE HCL 5 MG TABLET PO SCH (06:20)
[2018-08-31] MEDS: HEPARIN NA (PORCINE) 5,000 UNITS/ML 1ML VIAL SQ SCH ×3 (06:20→22:29)
[2018-08-31 07:01] LABS: BASO % 0.5 % (0-2.0); EOS % 1.1 % (0-4.5); HEMATOCRIT 23.3 % (32.4-45.2); HEMOGLOBIN 7.4 GM/dL (10.7-15.3); LYMPH % 14.7 % (8-40); MCH 28.4 pg (25.7-33.7); MEAN CELL VOLUME 88.7 fl (80-96); MEAN PLT VOLUME 7.9 fl (7.5-11.1); MONO % 4.4 % (3.8-10.2); NEUT % 79.3 % (42.8-82.8); PLATELET COUNT 215 K/MM3 (134-434); RBC 2.62 M/mm3 (3.60-5.2); RDW 13.8 % (11.6-15.6)
[2018-08-31 07:14] LABS: ALBUMIN 2.3 g/dl (3.4-5.0); ALK PHOS 89 U/L (45-117); ANION GAP 8 MMOL/L (8-16); BILIRUBIN,TOTAL 0.4 mg/dL (0.2-1); BLOOD UREA NITROGEN 46 mg/dL (7-18); CALCIUM 8.4 mg/dL (8.5-10.1); CHLORIDE 102 mmol/L (98-107); CO2 28 mmol/L (21-32); CREATININE 2.9 mg/dL (0.55-1.3); GLUCOSE,RANDOM 99 mg/dL (74-106); POTASSIUM 5.4 mmol/L (3.5-5.1); SGOT/AST 9 U/L (15-37); SGPT/ALT 10 U/L (13-61); SODIUM 137 mmol/L (136-145); TOT PROT 6.8 g/dl (6.4-8.2)
--- NOTE | 2018-08-31 10:54 | PN ---
Progress Note (short form) - Note Progress Note: Renal follow up for AYSE on CKD Vital Signs Temperature 98.5 F 08/31/18 06:17 Pulse Rate 75 08/31/18 06:17 Respiratory Rate 18 08/31/18 06:17 Blood Pressure 105/40 L 08/31/18 06:17 O2 Sat by Pulse Oximetry (%) 99 08/30/18 21:00 Intake & Output 08/28/18 08/29/18 08/30/18 08/31/18 23:59 23:59 23:59 23:59 Intake Total 390 1300 1000 Output Total 1400 200 Balance -1010 1100 1000 CBC, BMP 08/31/18 06:30 08/31/18 06:30 Current Medications Acetaminophen (Tylenol -) 650 mg PO Q4H PRN PRN Reason: PAIN LEVEL 6-10 Last Admin: 08/30/18 13:59 Dose: 650 mg Bacitracin (Bacitracin -) 1 applic TP DAILY [facility] Last Admin: 08/30/18 13:56 Dose: Not Given Heparin Sodium (Porcine) (Heparin -) 5,000 unit SQ TID [facility] Last Admin: 08/31/18 06:20 Dose: Not Given Sodium Chloride (Normal Saline -) 1,000 mls @ 100 mls/hr IV ASDIR [facility] Last Admin: 08/30/18 16:08 Dose: Not Given Aztreonam 1 gm/ Dextrose 50 mls @ 100 mls/hr IVPB Q8H-IV [facility]; Protocol Last Admin: 08/31/18 01:43 Dose: Not Given Lorazepam (Ativan -) 2 mg PO BID PRN PRN Reason: WITHDRAWAL(CONT SUBST) Last Admin: 08/30/18 13:56 Dose: 2 mg Methadone HCl (Dolophine -) 5 mg PO DAILY@0600 [facility] Last Admin: 08/31/18 06:20 Dose: 5 mg Ondansetron HCl (Zofran -) 8 mg PO Q8H PRN PRN Reason: NAUSEA Last Admin: 08/30/18 14:37 Dose: 8 mg 33 year old white woman with hx of CKD (athropic Kidney as per patient), polysubstance abuse (heroin, ETOH), Hepatitis B, Hx of hyperkalmeia with paralysis presented from outpatient rehab with hypotension and acute renal injury. #AYSE on CKD from volume depletion +/- NSAID induced ATN vs. AIN (bland urine sedament, FeNa pending, b/l small and echogenic kidneys) #CKD #Hyperkalemia #Hyponatremia #Polysubstance abuse #Hypomagnesemia Jamal Valiente DO
[2018-08-31] MEDS: BACITRACIN 15 GM TUBE TOPICAL OINTMENT TP SCH (11:04)
--- NOTE | 2018-08-31 11:25 | PN ---
Physical Exam: SUBJECTIVE: Patient seen and examined at bedside. Overnight events noted. No new complaints. Feels better this morining. More alert and cooperative. Denies CP, CULVER, SOB, palpitations, abdominal pain, nausea, vomiting, dysuria, fever or chills. OBJECTIVE: Vital Signs Period Temp Pulse Resp BP Sys/Torres Pulse Ox Last 24 Hr 97.9 F-104.0 F 67-102 14-18 80-105/34-79 99 GENERAL: Awake and alert, NAD EYES: PERRL, EOMI, sclera anicteric, conjunctiva clear. No ptosis. ENT: moist mucous membranes. NECK: Supple, NO JVD LUNGS: CTAB, no wheezes, no crackles, no accessory muscle use. HEART: RRR, S1, S2 without murmur, rub or gallop. ABDOMEN: Soft, mild epigastric tenderness. , nondistended, normoactive bowel sounds, no guarding, no rebound, no hepatosplenomegaly, no masses. EXTREMITIES: 2+ pulses, warm, well-perfused, no edema. NEUROLOGICAL: Cranial nerves II through XII grossly intact. Normal speech, gait not observed. PSYCH: Normal mood, normal affect. SKIN: Warm, dry, normal turgor, no rashes or lesions noted Laboratory Results - last 24 hr 08/29/18 08/30/18 08/31/18 10:41 07:15 06:30 WBC 14.0 H RBC 2.62 L Hgb 7.4 L Hct 23.3 L MCV 88.7 MCH 28.4 MCHC 32.0 RDW 13.8 Plt Count 215 D MPV 7.9 Absolute Neuts (auto) 11.1 H Neutrophils % 79.3 Lymphocytes % 14.7 Monocytes % 4.4 Eosinophils % 1.1 Basophils % 0.5 Nucleated RBC % 0 Sodium Potassium Chloride Carbon Dioxide Anion Gap BUN Creatinine Creat Clearance w eGFR Random Glucose Calcium Total Bilirubin AST ALT Alkaline Phosphatase Total Protein Albumin Free T3 1.7 L Cortisol AM Sample 5.8 12.1 Cortisol PM Sample Cancelled 08/31/18 06:30 WBC RBC Hgb Hct MCV MCH MCHC RDW Plt Count MPV Absolute Neuts (auto) Neutrophils % Lymphocytes % Monocytes % Eosinophils % Basophils % Nucleated RBC % Sodium 137 Potassium 5.4 H Chloride 102 Carbon Dioxide 28 Anion Gap 8 BUN 46 H Creatinine 2.9 H Creat Clearance w eGFR 18.81 Random Glucose 99 Calcium 8.4 L Total Bilirubin 0.4 AST 9 L ALT 10 L Alkaline Phosphatase 89 Total Protein 6.8 Albumin 2.3 L Free T3 Cortisol AM Sample Cortisol PM Sample Active Medications Generic Name Dose Route Start Last Admin Trade Name Freq PRN Reason Stop Dose Admin Acetaminophen 650 mg 08/27/18 15:19 08/30/18 13:59 Tylenol - PO 650 mg Q4H PRN Administration PAIN LEVEL 6-10 Bacitracin 1 applic 08/27/18 10:00 08/30/18 13:56 Bacitracin - TP Not Given DAILY [facility] Heparin Sodium (Porcine) 5,000 unit 08/26/18 22:00 08/31/18 06:20 Heparin - SQ Not Given TID [facility] Sodium Chloride 1,000 mls @ 100 mls/hr 08/26/18 15:04 08/30/18 16:08 Normal Saline - IV Not Given ASDIR [facility] Aztreonam 1 gm/ Dextrose 50 mls @ 100 mls/hr 08/30/18 19:00 08/31/18 01:43 IVPB Not Given Q8H-IV [facility] Protocol Lorazepam 2 mg 08/28/18 13:39 08/30/18 13:56 Ativan - PO 2 mg BID PRN Administration WITHDRAWAL(CONT SUBST) Methadone HCl 5 mg 08/26/18 14:08 08/31/18 06:20 Dolophine - PO 5 mg DAILY@0600 [facility] Administration Ondansetron HCl 8 mg 08/28/18 12:57 08/30/18 14:37 Zofran - PO 8 mg Q8H PRN Administration NAUSEA ASSESSMENT/PLAN: Problem List - Problems (1) Fever Assessment/Plan: t-max overnight 98.5 * Blood cultures were refused by patient. Will re-attempt to draw today * UA and UC pending. * CBC with diff. - shows WBC of 14 today. * CXR also pending. * ID consulted (2) Acute on chronic kidney failure Assessment/Plan: most likely 2/2 hypoperfusion * appreciated Nephro consult. * checked urine for FeNa, UPCR, Urine Eos * Check Renal US to confirm atrophic or absent kidney- patient has refused * Trend serum K Q12h * Low potassium diet * Keep MAP > 65 Qualifiers: (3) Hyperkalemia Assessment/Plan: Increased to 5.4 today * dose kayexelate today * Low potassium diet * trend K+; repeat BMP this afternoon. (4) Hyponatremia Assessment/Plan: resolved. * repeat BMP. (5) Polysubstance abuse Assessment/Plan: Will need addictive medicine consult. * Methadone 10mg daily * librium 25mg PO PRN for agitation/withdrawl * will return to [facility] once stable for rehab. (6) Anemia Assessment/Plan: drop in H/H from admission * most likely multifactorial. * No signs of overt bleed. * FOBT * trend H/H * normal transfusion thresholds. * Iron studies show iron def. anemia. Visit type - Emergency Visit Emergency Visit: Yes ED Registration Date: 08/24/18 Care time: The patient presented to the Emergency Department on the above date and was hospitalized for further evaluation of their emergent condition. - New Patient This patient is new to me today: No - Critical Care Critical Care patient: No
[2018-08-31] MEDS ORDERED: SODIUM POLYSTYRENE SULFONATE 15 GM/60 ML BOTTLE PO ONE (11:32)
--- NOTE | 2018-08-31 11:33 | PN ---
Teaching Attending Note Name of Resident: Kiet Mcdonald ATTENDING PHYSICIAN STATEMENT I saw and evaluated the patient. I reviewed the resident's note and discussed the case with the resident. I agree with the resident's findings and plan as documented. SUBJECTIVE: Patient feels comfortable denies any dysuria, cough abd pain or diarrhea, yesterday spiked 104 temp today t max 100.4, OBJECTIVE: Vital Signs 08/31/18 06:17 Temperature 98.5 F Pulse Rate 75 Respiratory 18 Rate Blood Pressure 105/40 L Young F non toxic comfortable not in distress HEENT: Mm moist mild anemia NECK: No JVd No Bruit CHEST: CTA B/L CVS: s1S2 R ABD: Mild epigastric tenderness EXT: No edemqq feet; SUPPLY MANAGER: AOX3 base line CBC, BMP 08/31/18 06:30 08/31/18 06:30 CXR: rt Hilar infiltrate ? Active Medications Acetaminophen (Tylenol -) 650 mg PO Q4H PRN PRN Reason: PAIN LEVEL 6-10 Last Admin: 08/31/18 14:20 Dose: 650 mg Bacitracin (Bacitracin -) 1 applic TP DAILY [facility] Last Admin: 08/31/18 11:04 Dose: Not Given Heparin Sodium (Porcine) (Heparin -) 5,000 unit SQ TID [facility] Last Admin: 08/31/18 14:21 Dose: Not Given Sodium Chloride (Normal Saline -) 1,000 mls @ 100 mls/hr IV ASDIR [facility] Last Admin: 08/30/18 16:08 Dose: Not Given Aztreonam 1 gm/ Dextrose 50 mls @ 100 mls/hr IVPB Q12H [facility]; Protocol Last Admin: 08/31/18 14:21 Dose: Not Given Lorazepam (Ativan -) 2 mg PO BID PRN PRN Reason: WITHDRAWAL(CONT SUBST) Last Admin: 08/30/18 13:56 Dose: 2 mg Methadone HCl (Dolophine -) 5 mg PO DAILY@0600 [facility] Last Admin: 08/31/18 06:20 Dose: 5 mg Ondansetron HCl (Zofran -) 8 mg PO Q8H PRN PRN Reason: NAUSEA Last Admin: 08/30/18 14:37 Dose: 8 mg ASSESSMENT AND PLAN:33 yrs old F H/O Hep B, narcotic abuse, admitted with AYSE on CKD with Electrolytes imbalance , yesterday spiked fever, refused labs, IV access, abx and imaging, today agrees for lab and Xray, elevated TWBC worsening renal function, hyperkalemia , CXR Rt sided Hilar infiltrate Fever with ? Pneumonia; aztreonam+Vancomycine if patient refuses IV will discuss with ID for oral options Hyperkalemia; Po Kayxelate AYSE on CKD: IV Hydration F/U BMP (refusing ) Evaluated by Psychiatrist recommended patient has decisional capacity if wants to home will be discharge AMA a prescription of broad spectrum abx (renal adjusted Levofloxacin )
--- NOTE | 2018-08-31 11:43 | PN ---
Progress Note (short form) - Note Progress Note: ID Consult dictated High grade fever ? source Polysubstance abuse Refusing blood work, IV antibiotics Will order fever workup and treatment to the extend patient will permit
--- NOTE | 2018-08-31 11:46 | PN ---
Progress Note (short form) - Note Progress Note: Psych; Patient seen for capacity??? Patient isalert, able to comprehend, did some tests today. Wants to coopwrate. REc: Patient has the mental capacity to make decisions at this time.
[2018-08-31] MEDS ORDERED: VANCOMYCIN 1 GRAM (PRE-DOCKED) 1,000 MG/250 ML BAG IVPB ONE (11:48)
--- NOTE | 2018-08-31 13:05 | CONS ---
DATE OF CONSULTATION: DATE OF DICTATION: 09/30/2018 HISTORY OF PRESENT ILLNESS: This is a 33-year-old female with history of polysubstance abuse evaluated for fever. The patient was admitted to [facility]ox on August 24, 2018. She was transferred to medical surgical unit after developing increased lethargy and hypotension. She was on the medical unit for approximately 1 week. She was being prepared for discharge to rehabilitation when she spiked a temperature to 104. Patient refused intervention. She would not allow blood cultures to be done, nor for IV to be inserted for IV antibiotic therapy. At the present time, she is awake and alert. She has no focal complaint. She denies any chest pain, shortness of breath, cough, sputum production, vomiting, diarrhea, dysuria, hematuria. Of note, the patient states that she had developed pain at a left wrist IV site from which she expressed pus. I was unable to verify this with the nursing staff. PAST MEDICAL HISTORY: Positive for polysubstance abuse, chronic kidney disease, hepatitis C, and seizure disorder. MEDICATIONS: At the present time include Zofran, Tylenol, vancomycin, Azactam, heparin, Ativan, methadone. SOCIAL HISTORY: The patient has a history of polysubstance abuse, was in [facility]ox for alcohol and opiates, positive tobacco use. 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 SYSTEMS REVIEW: Neurologic: No loss of consciousness, seizure activity, or focal weakness. Cardiac: Negative for chest pain or palpitations. Respiratory: Negative for cough or sputum production. Gastrointestinal: Negative for vomiting or diarrhea. Genitourinary: Negative for urinary tract infection. LABORATORY DATA: White count 14, hematocrit 23.3, platelet count 215. Creatinine 2.9, total protein 6.8, albumin 2.3. PHYSICAL EXAMINATION: General: She is awake and alert. She is not acutely toxic-appearing. Vital signs: Maximum temperature 104, blood pressure 105/40, pulse 75 regular, respirations 18 per minute. HEENT: Sclerae anicteric. Heart: Heart sounds S1, S2. No murmur. Lungs: Clear. Abdomen: Soft. Striae are noted. No mass, rebound, or rigidity. Extremities: Negative for edema. Negative for Homans sign. No evidence of catheter-related phlebitis in the upper extremities. IMPRESSION: 1. High grade fever, unclear source. 2. Polysubstance abuse. The patient is refusing blood work and IV antibiotic therapy. Will order fever workup and treat empirically to the extent patient will permit. She agrees to HIV testing. Psychiatry followup. Thank you for the kind referral. CHAZ BRADY M.D. [id number]
[2018-08-31] MEDS: ACETAMINOPHEN 325 MG TABLET (FP) PO PRN ×2 (14:20→20:11)
--- NOTE | 2018-08-31 14:53 | PN ---
Progress Note (short form) - Note Progress Note: Renal follow up for AYSE on CKD Pt seen and examined at the bedside no acute complaints had fever yesterday not currently on IVF because she does not have IVF Vital Signs Temperature 97.8 F 08/31/18 10:00 Pulse Rate 79 08/31/18 10:00 Respiratory Rate 20 08/31/18 10:00 Blood Pressure 86/32 L 08/31/18 10:00 O2 Sat by Pulse Oximetry (%) 99 08/30/18 21:00 Intake & Output 08/28/18 08/29/18 08/30/18 08/31/18 23:59 23:59 23:59 23:59 Intake Total 390 1300 1000 265 Output Total 1400 200 Balance -1010 1100 1000 265 NAD no Le edema CBC, BMP 08/31/18 06:30 08/31/18 06:30 Current Medications Acetaminophen (Tylenol -) 650 mg PO Q4H PRN PRN Reason: PAIN LEVEL 6-10 Last Admin: 08/31/18 14:20 Dose: 650 mg Bacitracin (Bacitracin -) 1 applic TP DAILY [facility] Last Admin: 08/31/18 11:04 Dose: Not Given Heparin Sodium (Porcine) (Heparin -) 5,000 unit SQ TID [facility] Last Admin: 08/31/18 14:21 Dose: Not Given Sodium Chloride (Normal Saline -) 1,000 mls @ 100 mls/hr IV ASDIR EMERALD Last Admin: 08/30/18 16:08 Dose: Not Given Aztreonam 1 gm/ Dextrose 50 mls @ 100 mls/hr IVPB Q12H [facility]; Protocol Last Admin: 08/31/18 14:21 Dose: Not Given Lorazepam (Ativan -) 2 mg PO BID PRN PRN Reason: WITHDRAWAL(CONT SUBST) Last Admin: 08/30/18 13:56 Dose: 2 mg Methadone HCl (Dolophine -) 5 mg PO DAILY@0600 [facility] Last Admin: 08/31/18 06:20 Dose: 5 mg Ondansetron HCl (Zofran -) 8 mg PO Q8H PRN PRN Reason: NAUSEA Last Admin: 08/30/18 14:37 Dose: 8 mg 33 year old white woman with hx of CKD (athropic Kidney as per patient), polysubstance abuse (heroin, ETOH), Hepatitis B, Hx of hyperkalmeia with paralysis presented from outpatient rehab with hypotension and acute renal injury. #AYSE on CKD from volume depletion +/- NSAID (bland urine sedament, FeNa pending , b/l small and echogenic kidneys) #CKD with b/l atrophic kidneys w/o significant proteinuria #Hyperkalemia #Hyponatremia #Polysubstance abuse #Hypomagnesemia BUN/Cr up trending, given high ratio likely volume depletion once again pt without IV access at this time, encouraged oral hydration as tolerated no diuretic/SKYE/ARB at this time continue supportive care K of 5.4 noted, continue low potassium diet recommend dietary consult to educate patient on low potassium diet so that it can be followed as an outpatient. Jamal Valiente DO
--- NOTE | 2018-08-31 15:14 | ECHO ---
Name: IVONNE TOMAS Exam:Adult Echocardiogram Study Date: 08/31/2018 11:13 AM Age: 33 yrs Reason For Study: SYNCOPE Height: 66 in Weight: 163 lb BSA: 1.8 m2 MMode/2D Measurements & Calculations IVSd: 0.99 cm Ao root diam: 2.8 cm LVIDd: 3.3 cm ACS: 1.9 cm LVIDs: 2.6 cm LVPWd: 1.0 cm EDV(Teich): 42.9 ml LVOT diam: 2.1 cm ESV(Teich): 23.6 ml Doppler Measurements & Calculations MV V2 max: 160.5 cm/sec Ao V2 max: 184.6 cm/sec MV max P.3 mmHg Ao max P.6 mmHg MV V2 mean: 111.2 cm/sec Ao V2 mean: 126.3 cm/sec MV mean P.7 mmHg Ao mean P.4 mmHg MV V2 VTI: 38.0 cm Ao V2 VTI: 40.0 cm TV V2 max: 221.6 cm/sec Med Peak E' Juice: 12.8 cm/sec TV max P.7 mmHg Lat Peak E' Juice: 13.2 cm/sec Left Ventricle The left ventricular size, thickness and function are normal. EF 60%. Right Ventricle The right ventricle is normal in size and function. Atria The left atrial size is normal. Right atrial size is normal. Mitral Valve The mitral valve leaflets appear normal. There is no evidence of stenosis, fluttering, or prolapse. T here is trace mitral regurgitation. Tricuspid Valve The tricuspid valve is normal. There is trace tricuspid regurgitation. PASP 23 mmHg. Aortic Valve The aortic valve is normal in structure and function. Pulmonic Valve The pulmonic valve is not well seen, but is grossly normal. Great Vessels The aortic root is normal size. Interpretation Summary The left ventricular size, thickness and function are normal The right ventricle is normal in size and function. EF 60% The left atrial size is normal. The mitral valve leaflets appear normal. There is no evidence of stenosis, fluttering, or prolapse. There is trace mitral regurgitation. The tricuspid valve is normal. There is trace tricuspid regurgitation. The aortic valve is normal in structure and function. The pulmonic valve is not well seen, but is grossly normal. The aortic root is normal size. PASP 23 mmHg MD Law Hayes 08/31/2018 03:13 PM
[2018-08-31] MEDS: SODIUM CHLORIDE 1,000 ML IV SCH (16:52)
[2018-08-31] MEDS: FERROUS SO4 325 MG TABLET (FP) PO SCH (17:17)
[2018-08-31 19:17] LABS: URINE APPEARANCE CLEAR; URINE BILIRUBIN NEGATIVE (<2.0 mg/dL); URINE COLOR YELLOW; URINE GLUCOSE (UA) NEGATIVE (NEGATIVE); URINE KETONE NEGATIVE (NEGATIVE); URINE LEUK ESTERASE TRACE (NEGATIVE); URINE NITRITE NEGATIVE (NEGATIVE); URINE PROTEIN NEGATIVE (NEGATIVE); URINE UROBILINOGEN NEGATIVE mg/dL (0.2-1.0)
[2018-08-31 19:22] LABS: EPI CELLS RARE /HPF (FEW); URINE BACTERIA RARE /hpf (NONE SEEN); URINE MUCUS RARE
[2018-08-31] MEDS: LORazepam 1 MG TABLET PO PRN (20:10)
[2018-08-31] MEDS ORDERED: CYCLOBENZAPRINE HCL 5 MG TABLET PO ONE (21:59)
[2018-09-01] MEDS: AZTREONAM 1 GM in DEXTROSE 5%-WATER - 50 ML IVPB SCH ×2 (00:30→12:33)
[2018-09-01] MEDS: ACETAMINOPHEN 325 MG TABLET (FP) PO PRN (05:49)
[2018-09-01] MEDS: METHADONE HCL 5 MG TABLET PO SCH (05:49)
[2018-09-01] MEDS: HEPARIN NA (PORCINE) 5,000 UNITS/ML 1ML VIAL SQ SCH ×2 (05:57→15:19)
[2018-09-01] MEDS: BACITRACIN 15 GM TUBE TOPICAL OINTMENT TP SCH (10:34)
[2018-09-01] MEDS: FERROUS SO4 325 MG TABLET (FP) PO SCH ×2 (10:34→11:17)
[2018-09-01] MEDS: LORazepam 1 MG TABLET PO PRN (11:17)
[2018-09-01 11:33] VITALS: BP 86/42; PULSE 75; TEMP 97.5
--- NOTE | 2018-09-01 17:56 | PN ---
Teaching Attending Note Name of Resident: Kiet Mcdonald ATTENDING PHYSICIAN STATEMENT I saw and evaluated the patient. I reviewed the resident's note and discussed the case with the resident. I agree with the resident's findings and plan as documented. SUBJECTIVE: Patient refuses to engage with me OBJECTIVE: Unable to obtain, patient requests to not be examined ASSESSMENT AND PLAN: Patient seen and discussed concerns about her refusing treatment. Recommended IVF and IV antibiotics as concerned for sepsis. However patient refused. Discussed that at this point I cannot give her methadone and ativan as her hypotension is concerning, and that if she is septic then this would cause further low blood pressures and would be unsafe. Patient left AMA after hearing this.
== END 2018-09-01 15:33 | disposition left against medical advice (07) | DRG 460 ==
LOC: JER 16:23 → JERBED 20:14 → OBSVTOIN 21:51 → J7W 08-25 01:23 → J4W 08-25 22:18 → J5S 08-26 14:51 → UNDODISIN 08-31 11:27 → J5S 09-01 15:26
PROVIDERS: ADMIT Internal Medicine; ATTEND Internal Medicine
PROC: HZ2ZZZZ Detoxification Services for Substance Abuse Treatment (ICD-10-PCS; principal; 2018-08-25)
DX: N17.9 Acute kidney failure, unspecified (principal); I95.9 Hypotension, unspecified; E88.09 Other disorders of plasma-protein metabolism, not elsewhere classified; E87.1 Hypo-osmolality and hyponatremia; F11.23 Opioid dependence with withdrawal; N18.9 Chronic kidney disease, unspecified; D64.9 Anemia, unspecified; G40.909 Epilepsy, unspecified, not intractable, without status epilepticus; B19.20 Unspecified viral hepatitis C without hepatic coma; Z88.0 Allergy status to penicillin; F10.10 Alcohol abuse, uncomplicated; E87.6 Hypokalemia; E86.9 Volume depletion, unspecified; E83.42 Hypomagnesemia; E86.0 Dehydration; F31.9 Bipolar disorder, unspecified; F39 Unspecified mood [affective] disorder; R50.9 Fever, unspecified
CPT/HCPCS: 36415; 71045-TC-FY; 76775-TC; 76856-TC; 80048; 80053; 80307; 81003; 81015; 82533; 82550; 82570; 82693; 83036; 83540; 83550; 83605; 83735; 83930; 84100; 84156; 84244; 84300; 84439; 84443; 84481; 84484; 84540; 84702; 85025; 87040; 87086; 93005; 93010; 93306-TC; 99283-25; G0378; J7030

== ENCOUNTER 2021-01-16 16:45 | Inpatient (IN) | payer OTHER ==
[2021-01-16] MEDS ORDERED: NICOTINE POLACRILEX 2 MG GUM BUC PRN (18:56)
[2021-01-16] MEDS ORDERED: MAGNESIUM HYDROX 2400MG/30ML ORAL SUSPENSION 30 ML CUP PO PRN (18:56)
[2021-01-16] MEDS ORDERED: MAG HYDROX/AL HYDROX/SIMETH 30 ML UNIT-DOSE CUP PO PRN (18:56)
[2021-01-16] MEDS ORDERED: MENTHOL/PHENOL 1 EACH UD MM PRN (18:56)
[2021-01-16] MEDS ORDERED: METHADONE HCL 10 MG TABLET (FOR DETOX USE ONLY) PO ONE (18:56)
[2021-01-16] MEDS ORDERED: cloNIDine HCL 0.1 MG TABLET PO PRN (18:56)
[2021-01-16] MEDS ORDERED: BISMUTH SUBSALICYLATE 524 MG/30 ML UD PO PRN (18:56)
[2021-01-16] MEDS ORDERED: ACETAMINOPHEN 325 MG TABLET (FP) PO PRN ×2 (18:56)
[2021-01-16] MEDS ORDERED: ONDANSETRON *ODT* 4 MG TABLET SL PRN (18:56)
[2021-01-16] MEDS ORDERED: MAGNESIUM CITRATE 300 ML BOTTLE PO PRN (18:56)
[2021-01-16] MEDS ORDERED: IBUPROFEN 400 MG TABLET (FP) PO PRN (18:56)
[2021-01-16 19:39] VITALS: BMI 28.5
[2021-01-16] MEDS: METHOCARBAMOL 500 MG TABLET PO PRN (20:46)
[2021-01-16] MEDS: THIAMINE HCL 100 MG TABLET (FP) PO SCH (23:19)
[2021-01-16] MEDS: MELATONIN 5 MG TABLETS PO SCH (23:19)
[2021-01-17] MEDS: METHOCARBAMOL 500 MG TABLET PO PRN ×2 (05:02→10:40)
[2021-01-17] MEDS: hydrOXYzine PAMOATE 25 MG CAPSULE (FP) PO PRN ×2 (05:02→10:40)
[2021-01-17] MEDS ORDERED: METHADONE HCL 10 MG TABLET (FOR DETOX USE ONLY) ONE (09:24)
[2021-01-17] MEDS ORDERED: METHADONE HCL 5 MG TABLET (FOR DETOX USE ONLY) ONE (09:24)
[2021-01-17] MEDS ORDERED: PRENATAL VITAMINS W/ FOLIC ACID TABLET (FP) PO SCH (10:00)
[2021-01-17] MEDS ORDERED: METHADONE (DETOX) 20 MG, METHADONE (DETOX) 5 MG PO ONE (10:00)
[2021-01-17 11:11] LABS: ALBUMIN 2.2 g/dl (3.4-5.0); BLOOD UREA NITROGEN 25.8 mg/dL (7-18); CALCIUM 8.5 mg/dL (8.5-10.1)
[2021-01-17 11:13] LABS: HEMATOCRIT 20.5 % (32.4-45.2); MCH 28.8 pg (25.7-33.7); MCHC 33.4 g/dl (32.0-36.0); MEAN CELL VOLUME 86.2 fl (80-96); MEAN PLT VOLUME 7.4 fl (7.5-11.1); PLATELET COUNT 383 K/MM3 (134-434); RBC 2.38 M/mm3 (3.60-5.2); RDW 16.8 % (11.6-15.6); WHITE BLOOD COUNT 9.5 K/mm3 (4.0-10.0)
[2021-01-17 11:15] LABS: CREATININE 1.8 mg/dL (0.55-1.3)
[2021-01-17 11:16] LABS: BILIRUBIN,TOTAL 0.4 mg/dL (0.2-1); TOT PROT 7.7 g/dl (6.4-8.2)
[2021-01-17 11:27] LABS: HEMOGLOBIN 6.8 GM/dL (10.7-15.3)
[2021-01-17 12:56] VITALS: BP 96/49; PULSE 49; TEMP 98.4
[2021-01-17] MEDS: THIAMINE HCL 100 MG TABLET (FP) PO SCH (22:43)
[2021-01-17] MEDS: MELATONIN 5 MG TABLETS PO SCH (22:43)
[2021-01-18] MEDS ORDERED: METHADONE HCL 10 MG TABLET (FOR DETOX USE ONLY) PO ONE (10:00)
[2021-01-19] MEDS ORDERED: METHADONE (DETOX) 10 MG, METHADONE (DETOX) 5 MG PO ONE (10:00)
[2021-01-20] MEDS ORDERED: METHADONE HCL 10 MG TABLET (FOR DETOX USE ONLY) PO ONE (10:00)
[2021-01-21] MEDS ORDERED: METHADONE HCL 5 MG TABLET (FOR DETOX USE ONLY) PO ONE (06:00)
== END 2021-01-18 08:23 | disposition short-term general hospital (02) | DRG 773 ==
LOC: YASAS 16:45 → Y6N 19:14
PROVIDERS: ADMIT Allergy & Immunology; ATTEND Allergy & Immunology
PROC: HZ2ZZZZ Detoxification Services for Substance Abuse Treatment (ICD-10-PCS; principal; 2021-01-16)
DX: F11.23 Opioid dependence with withdrawal (principal); F17.210 Nicotine dependence, cigarettes, uncomplicated; D64.9 Anemia, unspecified; I95.9 Hypotension, unspecified; R00.1 Bradycardia, unspecified; B18.2 Chronic viral hepatitis C; Z87.448 Personal history of other diseases of urinary system; Z86.19 Personal history of other infectious and parasitic diseases; Z88.0 Allergy status to penicillin
CPT/HCPCS: 36415; 80053; 81025; 85027; 86593; 86780; 93005; 93010; C9803; U0003; U0005

== ENCOUNTER 2021-01-17 13:48 | Emergency (ER) | payer OTHER ==
[2021-01-17 14:07] VITALS: BMI 23.3
[2021-01-17] MEDS ORDERED: SODIUM CHLORIDE 0.9% 500 ML INFUS.BAG IV ONE (15:29)
[2021-01-17] MEDS ORDERED: ACETAMINOPHEN 1000 MG/100 ML VIAL (NON FORMULARY) IVPB ONE (15:29)
[2021-01-17] MEDS ORDERED: LORazepam 2 MG TABLET PO ONE (16:01)
[2021-01-17] MEDS ORDERED: METOCLOPRAMIDE HCL INJECTION 10 MG/2 ML VIAL IVPUSH ONE (16:04)
[2021-01-17] MEDS ORDERED: LORazepam 1 MG TABLET ONE (16:09)
[2021-01-17] MEDS ORDERED: ACETAMINOPHEN INJECTION 100 ML IVPB ONE (16:24)
[2021-01-17] MEDS ORDERED: METOCLOPRAMIDE HCL INJECTION 10 MG/2 ML VIAL ONE (16:24)
[2021-01-17 17:12] LABS: HEMATOCRIT 24.3 % (32.4-45.2); HEMOGLOBIN 7.9 GM/dL (10.7-15.3); MCHC 32.6 g/dl (32.0-36.0); MEAN PLT VOLUME 6.6 fl (7.5-11.1); PLATELET COUNT 428 K/MM3 (134-434); RBC 2.82 M/mm3 (3.60-5.2); RDW 16.3 % (11.6-15.6); WHITE BLOOD COUNT 10.1 K/mm3 (4.0-10.0)
[2021-01-17 17:16] LABS: CHLORIDE 103 mmol/L (98-107); SODIUM 135 mmol/L (136-145)
[2021-01-17 17:18] LABS: ALBUMIN 2.3 g/dl (3.4-5.0); ANION GAP 5 MMOL/L (8-16); CALCIUM 8.6 mg/dL (8.5-10.1); CO2 27 mmol/L (21-32); GLUCOSE,RANDOM 84 mg/dL (74-106); MAGNESIUM 1.6 mg/dL (1.8-2.4)
[2021-01-17 17:19] LABS: BLOOD UREA NITROGEN 25.7 mg/dL (7-18)
[2021-01-17 17:21] LABS: PHOSPHOROUS 3.5 mg/dL (2.5-4.9)
[2021-01-17 17:22] LABS: CREATININE 1.7 mg/dL (0.55-1.3); SGOT/AST 6 U/L (15-37); SGPT/ALT 7 U/L (13-61)
[2021-01-17 17:23] LABS: BILIRUBIN,TOTAL 0.3 mg/dL (0.2-1); TOT PROT 8.3 g/dl (6.4-8.2)
[2021-01-17 17:24] LABS: ALK PHOS 131 U/L (45-117)
[2021-01-17] MEDS ORDERED: DEXAMETHASONE SOD PHOSPHATE 10 MG/1 ML VIAL IVPUSH ONE (18:02)
[2021-01-17] MEDS ORDERED: DEXAMETHASONE SOD PHOSPHATE 10 MG/1 ML VIAL ONE (18:18)
[2021-01-17 20:20] VITALS: PULSE 58
[2021-01-17 20:22] VITALS: BP 104/60; TEMP 97.6
== END 2021-01-17 20:24 | disposition short-term general hospital (02) ==
LOC: JER 13:48
PROC: 3E033NZ Introduction of Analgesics, Hypnotics, Sedatives into Peripheral Vein, Percutaneous Approach (ICD-10-PCS; principal; 2021-01-17)
PROC: 3E033GC Introduction of Other Therapeutic Substance into Peripheral Vein, Percutaneous Approach (ICD-10-PCS; 2021-01-17)
DX: G93.6 Cerebral edema (principal); G93.89 Other specified disorders of brain; D64.9 Anemia, unspecified
CPT/HCPCS: 36415; 70450-TC; 80053; 83735; 84100; 84439; 84443; 84484; 84702; 85027; 86850; 86900; 86901; 93005; 93010; 99285-25; C9803; J0131; J1100; U0003; U0005

== ENCOUNTER 2021-06-05 10:01 | Inpatient (IN) | payer OTHER ==
[2021-06-05 11:03] VITALS: BMI 30.4
[2021-06-05] MEDS ORDERED: IBUPROFEN 400 MG TABLET (FP) PO PRN (11:30)
[2021-06-05] MEDS ORDERED: MAGNESIUM CITRATE 300 ML BOTTLE PO PRN (11:30)
[2021-06-05] MEDS ORDERED: methaDONE HCL 10 MG TABLET (FOR DETOX USE ONLY) PO ONE (11:30)
[2021-06-05] MEDS ORDERED: MAGNESIUM HYDROX 2400MG/30ML ORAL SUSPENSION 30 ML CUP PO PRN (11:30)
[2021-06-05] MEDS ORDERED: clonazePAM 0.5 MG ODT TABLETS SL PRN (11:30)
[2021-06-05] MEDS ORDERED: MAG HYDROX/AL HYDROX/SIMETH 30 ML UNIT-DOSE CUP PO PRN (11:30)
[2021-06-05] MEDS ORDERED: BISMUTH SUBSALICYLATE 262 MG/15 ML BTL PO PRN (11:30)
[2021-06-05] MEDS ORDERED: ACETAMINOPHEN 325 MG TABLET (FP) PO PRN ×2 (11:30)
[2021-06-05] MEDS ORDERED: MENTHOL/PHENOL 1 EACH UD MM PRN (11:30)
[2021-06-05] MEDS ORDERED: ONDANSETRON *ODT* 4 MG TABLET SL PRN (11:30)
[2021-06-05] MEDS: PRENATAL VITAMINS W/ FOLIC ACID TABLET (FP) PO SCH (12:19)
[2021-06-05] MEDS: hydrOXYzine PAMOATE 25 MG CAPSULE (FP) PO SCH ×3 (14:34→21:54)
[2021-06-05] MEDS: MELATONIN 5 MG TABLETS PO SCH (21:54)
[2021-06-05] MEDS: THIAMINE HCL 100 MG TABLET (FP) PO SCH (21:54)
[2021-06-06] MEDS: cloNIDine HCL 0.1 MG TABLET PO PRN ×2 (04:13→19:10)
[2021-06-06] MEDS: METHOCARBAMOL 500 MG TABLET PO PRN ×2 (04:13→17:39)
[2021-06-06] MEDS: hydrOXYzine PAMOATE 25 MG CAPSULE (FP) PO SCH ×2 (07:19→09:40)
[2021-06-06] MEDS ORDERED: methaDONE HCL 10 MG TABLET (FOR DETOX USE ONLY) ONE (09:16)
[2021-06-06] MEDS: PRENATAL VITAMINS W/ FOLIC ACID TABLET (FP) PO SCH (09:40)
[2021-06-06] MEDS: NICOTINE 10 MG CARTRIDGE (INHALER) IH PRN ×2 (09:41→22:16)
[2021-06-06 12:37] LABS: HEMATOCRIT 28.2 % (32.4-45.2); HEMOGLOBIN 9.7 GM/dL (10.7-15.3); MCHC 34.5 g/dl (32.0-36.0); MEAN CELL VOLUME 89.8 fl (80-96); MEAN PLT VOLUME 8.1 fl (7.5-11.1); PLATELET COUNT 215 10^3/uL (134-434); RBC 3.14 M/mm3 (3.60-5.2); RDW 12.9 % (11.6-15.6); WHITE BLOOD COUNT 5.1 K/mm3 (4.0-10.0)
[2021-06-06 12:44] LABS: ALBUMIN 3.4 g/dl (3.4-5.0); BLOOD UREA NITROGEN 27.1 mg/dL (7-18)
[2021-06-06 12:48] LABS: CALCIUM 8.5 mg/dL (8.5-10.1)
[2021-06-06 12:51] LABS: CREATININE 1.9 mg/dL (0.55-1.3)
[2021-06-06 12:53] LABS: BILIRUBIN,TOTAL 0.3 mg/dL (0.2-1); TOT PROT 7.8 g/dl (6.4-8.2)
[2021-06-06] MEDS: FERROUS SO4 325 MG TABLET (FP) PO SCH (17:39)
[2021-06-06] MEDS: hydrOXYzine PAMOATE 25 MG CAPSULE (FP) PO PRN ×2 (17:39→22:16)
[2021-06-06] MEDS: THIAMINE HCL 100 MG TABLET (FP) PO SCH (22:14)
[2021-06-06] MEDS: MELATONIN 5 MG TABLETS PO SCH (22:14)
[2021-06-07] MEDS: hydrOXYzine PAMOATE 25 MG CAPSULE (FP) PO PRN ×2 (02:28→22:34)
[2021-06-07] MEDS: METHOCARBAMOL 500 MG TABLET PO PRN ×3 (02:29→22:35)
[2021-06-07] MEDS: FERROUS SO4 325 MG TABLET (FP) PO SCH ×3 (07:22→17:36)
[2021-06-07] MEDS ORDERED: methaDONE HCL 10 MG TABLET (FOR DETOX USE ONLY) PO ONE (10:00)
[2021-06-07] MEDS: PRENATAL VITAMINS W/ FOLIC ACID TABLET (FP) PO SCH (10:27)
[2021-06-07] MEDS: cloNIDine HCL 0.1 MG TABLET PO PRN ×2 (10:29→22:35)
[2021-06-07] MEDS: NICOTINE 10 MG CARTRIDGE (INHALER) IH PRN ×2 (17:54→22:36)
[2021-06-07] MEDS: MELATONIN 5 MG TABLETS PO SCH (22:33)
[2021-06-07] MEDS: THIAMINE HCL 100 MG TABLET (FP) PO SCH (22:34)
[2021-06-08] MEDS: hydrOXYzine PAMOATE 25 MG CAPSULE (FP) PO PRN ×3 (03:51→16:36)
[2021-06-08] MEDS: FERROUS SO4 325 MG TABLET (FP) PO SCH ×3 (07:57→16:36)
[2021-06-08] MEDS ORDERED: methaDONE HCL 10 MG TABLET (FOR DETOX USE ONLY) ONE (09:03)
[2021-06-08] MEDS: PRENATAL VITAMINS W/ FOLIC ACID TABLET (FP) PO SCH (11:02)
[2021-06-08] MEDS: NICOTINE 10 MG CARTRIDGE (INHALER) IH PRN ×2 (11:06→16:36)
[2021-06-08] MEDS: METHOCARBAMOL 500 MG TABLET PO PRN (11:06)
[2021-06-08 17:51] VITALS: BP 120/77; PULSE 59; TEMP 97.2
[2021-06-09] MEDS ORDERED: methaDONE HCL 10 MG TABLET (FOR DETOX USE ONLY) PO ONE (10:00)
== END 2021-06-08 18:41 | disposition home or self-care (01) | DRG 773 ==
LOC: YASAS 10:01 → Y6N 11:15 → Y3N 22:27
PROVIDERS: ADMIT Allergy & Immunology; ATTEND Allergy & Immunology
PROC: HZ2ZZZZ Detoxification Services for Substance Abuse Treatment (ICD-10-PCS; principal; 2021-06-05)
DX: F11.23 Opioid dependence with withdrawal (principal); F14.20 Cocaine dependence, uncomplicated; F15.20 Other stimulant dependence, uncomplicated; F17.210 Nicotine dependence, cigarettes, uncomplicated; F31.9 Bipolar disorder, unspecified; F41.9 Anxiety disorder, unspecified; N19 Unspecified kidney failure; D64.9 Anemia, unspecified; R79.89 Other specified abnormal findings of blood chemistry; B18.2 Chronic viral hepatitis C; Z86.79 Personal history of other diseases of the circulatory system; Z88.0 Allergy status to penicillin
CPT/HCPCS: 36415; 80053; 81025; 85027; 86593; 86780; C9803; J0735; U0003; U0005

== ENCOUNTER 2022-07-04 12:31 | Inpatient (IN) | payer OTHER ==
[2022-07-04 14:58] VITALS: BMI 29.9
[2022-07-04] MEDS ORDERED: MAG HYDROX/AL HYDROX/SIMETH 30 ML UNIT-DOSE CUP PO PRN (15:36)
[2022-07-04] MEDS ORDERED: DICYCLOMINE HCL 10 MG CAPSULE PO PRN (15:36)
[2022-07-04] MEDS ORDERED: NICOTINE 10 MG CARTRIDGE (INHALER) IH PRN (15:36)
[2022-07-04] MEDS ORDERED: LOPERAMIDE HCL 2 MG CAPSULE PO PRN (15:36)
[2022-07-04] MEDS ORDERED: NALOXONE HCL (KLOXXADO) 8 MG SPRAY NS PRN (15:36)
[2022-07-04] MEDS ORDERED: IBUPROFEN 600 MG TABLET (FP) PO PRN (15:36)
[2022-07-04] MEDS ORDERED: MAGNESIUM HYDROX 2400MG/30ML ORAL SUSPENSION 30 ML CUP PO PRN (15:36)
[2022-07-04] MEDS ORDERED: IBUPROFEN 400 MG TABLET (FP) PO PRN (15:36)
[2022-07-04] MEDS ORDERED: ACETAMINOPHEN 325 MG TABLET (FP) PO PRN ×2 (15:36)
[2022-07-04] MEDS ORDERED: ONDANSETRON *ODT* 4 MG TABLET SL PRN (15:36)
[2022-07-04] MEDS ORDERED: BENZOCAINE/MENTHOL (CHLORASEPTIC ) LOZENGE MM PRN (15:36)
[2022-07-04] MEDS ORDERED: METHOCARBAMOL 500 MG TABLET PO PRN (15:36)
[2022-07-04] MEDS ORDERED: BISMUTH SUBSALICYLATE 524 MG/30 ML PO PRN (15:36)
[2022-07-04] MEDS ORDERED: MAGNESIUM CITRATE 300 ML BOTTLE PO PRN (15:36)
[2022-07-04] MEDS ORDERED: cloNIDine HCL 0.1 MG TABLET PO PRN (15:36)
[2022-07-04] MEDS ORDERED: methaDONE HCL 10 MG TABLET (FOR DETOX USE ONLY) PO ONE (16:00)
[2022-07-04] MEDS: hydrOXYzine PAMOATE 25 MG CAPSULE (FP) PO SCH ×2 (18:19→22:44)
[2022-07-04] MEDS: PRENATAL VITAMINS W/ FOLIC ACID TABLET (FP) PO SCH (18:19)
[2022-07-04] MEDS: MELATONIN 5 MG TABLETS PO SCH (22:43)
[2022-07-04] MEDS: THIAMINE HCL 100 MG TABLET (FP) PO SCH (22:43)
[2022-07-05] MEDS: hydrOXYzine PAMOATE 25 MG CAPSULE (FP) PO SCH ×5 (06:19→22:03)
[2022-07-05] MEDS: PRENATAL VITAMINS W/ FOLIC ACID TABLET (FP) PO SCH (10:24)
[2022-07-05] MEDS: THIAMINE HCL 100 MG TABLET (FP) PO SCH (22:03)
[2022-07-05] MEDS: MELATONIN 5 MG TABLETS PO SCH (22:03)
[2022-07-06] MEDS: hydrOXYzine PAMOATE 25 MG CAPSULE (FP) PO SCH ×5 (06:57→22:04)
[2022-07-06] MEDS ORDERED: methaDONE HCL 10 MG TABLET (FOR DETOX USE ONLY) PO ONE (10:00)
[2022-07-06] MEDS: PRENATAL VITAMINS W/ FOLIC ACID TABLET (FP) PO SCH (10:07)
[2022-07-06] MEDS: MELATONIN 5 MG TABLETS PO SCH (22:04)
[2022-07-06] MEDS: THIAMINE HCL 100 MG TABLET (FP) PO SCH (22:04)
[2022-07-07] MEDS: hydrOXYzine PAMOATE 25 MG CAPSULE (FP) PO SCH ×4 (06:18→17:36)
[2022-07-07] MEDS: PRENATAL VITAMINS W/ FOLIC ACID TABLET (FP) PO SCH (10:21)
[2022-07-07 13:06] VITALS: BP 90/54; PULSE 58; RESP 16; TEMP 98.6
[2022-07-08] MEDS ORDERED: methaDONE HCL 10 MG TABLET (FOR DETOX USE ONLY) PO ONE (10:00)
== END 2022-07-07 17:05 | disposition left against medical advice (07) | DRG 770 ==
LOC: YASAS 12:31 → Y3N 15:56
PROVIDERS: ADMIT Allergy & Immunology; ATTEND Surgery
PROC: HZ2ZZZZ Detoxification Services for Substance Abuse Treatment (ICD-10-PCS; principal; 2022-07-04)
DX: F11.23 Opioid dependence with withdrawal (principal); F13.20 Sedative, hypnotic or anxiolytic dependence, uncomplicated; F14.20 Cocaine dependence, uncomplicated; F12.20 Cannabis dependence, uncomplicated; F17.210 Nicotine dependence, cigarettes, uncomplicated; F19.24 Other psychoactive substance dependence with psychoactive substance-induced mood disorder; F31.9 Bipolar disorder, unspecified; F43.10 Post-traumatic stress disorder, unspecified; F32.9 Major depressive disorder, single episode, unspecified; F41.9 Anxiety disorder, unspecified; Z88.0 Allergy status to penicillin; Z91.199 Patient's noncompliance with other medical treatment and regimen due to unspecified reason
CPT/HCPCS: 81025; C9803-CS; U0003; U0005

== ENCOUNTER 2022-10-24 19:08 | Inpatient (IN) | payer OTHER ==
[2022-10-24 21:21] VITALS: BMI 29.9
[2022-10-25] MEDS ORDERED: IBUPROFEN 400 MG TABLET (FP) PO PRN (06:40)
[2022-10-25] MEDS ORDERED: ACETAMINOPHEN 325 MG TABLET (FP) PO PRN ×2 (06:40)
[2022-10-25] MEDS ORDERED: MAGNESIUM HYDROX 2400MG/30ML ORAL SUSPENSION 30 ML CUP PO PRN (06:40)
[2022-10-25] MEDS ORDERED: ONDANSETRON *ODT* 4 MG TABLET SL PRN (06:40)
[2022-10-25] MEDS ORDERED: LOPERAMIDE HCL 2 MG CAPSULE PO PRN (06:40)
[2022-10-25] MEDS ORDERED: NALOXONE HCL (KLOXXADO) 8 MG SPRAY NS PRN (06:40)
[2022-10-25] MEDS ORDERED: DICYCLOMINE HCL 10 MG CAPSULE PO PRN (06:40)
[2022-10-25] MEDS ORDERED: POLYETHYLENE GLYCOL (HEALTHYLAX) 3350 17 GM PACKET PO PRN (06:40)
[2022-10-25] MEDS ORDERED: BISMUTH SUBSALICYLATE 524 MG/30 ML PO PRN (06:40)
[2022-10-25] MEDS ORDERED: MAG HYDROX/AL HYDROX/SIMETH 30 ML UNIT-DOSE CUP PO PRN (06:40)
[2022-10-25] MEDS ORDERED: BENZOCAINE/MENTHOL (CHLORASEPTIC ) LOZENGE MM PRN (06:40)
[2022-10-25] MEDS ORDERED: methaDONE HCL 10 MG TABLET (FOR DETOX USE ONLY) PO ONE (06:40)
[2022-10-25] MEDS ORDERED: METHOCARBAMOL 500 MG TABLET ONE (07:44)
[2022-10-25] MEDS ORDERED: methaDONE HCL 10 MG TABLET (FOR DETOX USE ONLY) ONE (07:44)
[2022-10-25] MEDS: METHOCARBAMOL 500 MG TABLET PO PRN ×3 (07:47→22:23)
[2022-10-25] MEDS: PRENATAL VITAMINS W/ FOLIC ACID TABLET (FP) PO SCH (10:50)
[2022-10-25] MEDS: NICOTINE 14 MG/24 HOURS TOPICAL PATCH TD SCH (10:50)
[2022-10-25] MEDS: cloNIDine HCL 0.1 MG TABLET PO PRN ×2 (15:44→22:23)
[2022-10-25] MEDS: IBUPROFEN 600 MG TABLET (FP) PO PRN (17:41)
[2022-10-25] MEDS: NICOTINE 10 MG CARTRIDGE (INHALER) IH PRN (17:51)
[2022-10-25] MEDS: THIAMINE HCL 100 MG TABLET (FP) PO SCH (22:21)
[2022-10-25] MEDS: MELATONIN 5 MG TABLETS PO SCH (22:21)
[2022-10-26] MEDS: IBUPROFEN 600 MG TABLET (FP) PO PRN ×2 (02:12→19:54)
[2022-10-26] MEDS: cloNIDine HCL 0.1 MG TABLET PO PRN ×3 (02:46→22:15)
[2022-10-26] MEDS: PRENATAL VITAMINS W/ FOLIC ACID TABLET (FP) PO SCH (10:07)
[2022-10-26] MEDS: METHOCARBAMOL 500 MG TABLET PO PRN ×2 (10:07→17:21)
[2022-10-26] MEDS: NICOTINE 14 MG/24 HOURS TOPICAL PATCH TD SCH (10:09)
[2022-10-26] MEDS: NICOTINE 10 MG CARTRIDGE (INHALER) IH PRN ×3 (12:41→22:21)
[2022-10-26] MEDS: MELATONIN 5 MG TABLETS PO SCH (22:13)
[2022-10-26] MEDS: THIAMINE HCL 100 MG TABLET (FP) PO SCH (22:13)
[2022-10-27] MEDS: METHOCARBAMOL 500 MG TABLET PO PRN ×3 (04:32→21:45)
[2022-10-27] MEDS: cloNIDine HCL 0.1 MG TABLET PO PRN ×2 (04:32→17:56)
[2022-10-27] MEDS: PRENATAL VITAMINS W/ FOLIC ACID TABLET (FP) PO SCH (10:00)
[2022-10-27] MEDS ORDERED: methaDONE HCL 10 MG TABLET (FOR DETOX USE ONLY) PO ONE (10:00)
[2022-10-27] MEDS: NICOTINE 14 MG/24 HOURS TOPICAL PATCH TD SCH (10:03)
[2022-10-27] MEDS: NICOTINE 10 MG CARTRIDGE (INHALER) IH PRN ×2 (15:31→21:45)
[2022-10-27 15:59] LABS: CALCIUM 8.8 mg/dL (8.5-10.1)
[2022-10-27 16:00] LABS: ALBUMIN 3.2 g/dl (3.4-5.0); BLOOD UREA NITROGEN 15.2 mg/dL (7-18)
[2022-10-27 16:04] LABS: BILIRUBIN,TOTAL 0.5 mg/dL (0.2-1); CREATININE 1.6 mg/dL (0.55-1.3); TOT PROT 7.1 g/dl (6.4-8.2)
[2022-10-27 16:11] LABS: HEMATOCRIT 32.2 % (32.4-45.2); HEMOGLOBIN 10.6 GM/dL (10.7-15.3); MCH 29.7 pg (25.7-33.7); MCHC 32.8 g/dl (32.0-36.0); MEAN CELL VOLUME 90.4 fl (80-96); MEAN PLT VOLUME 8.5 fl (7.5-11.1); PLATELET COUNT 268 10^3/uL (134-434); RBC 3.57 M/mm3 (3.60-5.2); RDW 13.9 % (11.6-15.6)
[2022-10-27] MEDS: THIAMINE HCL 100 MG TABLET (FP) PO SCH (21:45)
[2022-10-27] MEDS: MELATONIN 5 MG TABLETS PO SCH (21:45)
[2022-10-28] MEDS: METHOCARBAMOL 500 MG TABLET PO PRN ×3 (06:34→22:11)
[2022-10-28] MEDS: NICOTINE 10 MG CARTRIDGE (INHALER) IH PRN ×3 (06:34→14:27)
[2022-10-28] MEDS: PRENATAL VITAMINS W/ FOLIC ACID TABLET (FP) PO SCH (09:39)
[2022-10-28] MEDS: NICOTINE 14 MG/24 HOURS TOPICAL PATCH TD SCH (09:42)
[2022-10-28] MEDS: hydrOXYzine PAMOATE 25 MG CAPSULE (FP) PO PRN (18:28)
[2022-10-28] MEDS: MELATONIN 5 MG TABLETS PO SCH (22:11)
[2022-10-28] MEDS: THIAMINE HCL 100 MG TABLET (FP) PO SCH (22:11)
[2022-10-29] MEDS: hydrOXYzine PAMOATE 25 MG CAPSULE (FP) PO PRN ×2 (05:50→12:15)
[2022-10-29] MEDS: METHOCARBAMOL 500 MG TABLET PO PRN ×2 (05:50→12:15)
[2022-10-29] MEDS: NICOTINE 10 MG CARTRIDGE (INHALER) IH PRN ×2 (05:50→12:21)
[2022-10-29 09:18] VITALS: RESP 18
[2022-10-29] MEDS: PRENATAL VITAMINS W/ FOLIC ACID TABLET (FP) PO SCH (09:18)
[2022-10-29] MEDS: NICOTINE 14 MG/24 HOURS TOPICAL PATCH TD SCH (09:21)
[2022-10-29] MEDS ORDERED: methaDONE HCL 10 MG TABLET (FOR DETOX USE ONLY) PO ONE (10:00)
[2022-10-29 12:38] VITALS: BP 111/65; PULSE 58; TEMP 97.3
[2022-10-29] MEDS ORDERED: OLANZapine 5 MG TABLET PO SCH (22:00)
== END 2022-10-29 17:49 | disposition home or self-care (01) | DRG 773 ==
LOC: YASAS 19:08 → Y3N 10-25 07:40
PROVIDERS: ADMIT Allergy & Immunology; ATTEND Family Medicine
PROC: HZ2ZZZZ Detoxification Services for Substance Abuse Treatment (ICD-10-PCS; principal; 2022-10-25)
DX: F11.23 Opioid dependence with withdrawal (principal); F15.20 Other stimulant dependence, uncomplicated; F12.20 Cannabis dependence, uncomplicated; F17.210 Nicotine dependence, cigarettes, uncomplicated; F31.9 Bipolar disorder, unspecified; F19.24 Other psychoactive substance dependence with psychoactive substance-induced mood disorder; F43.10 Post-traumatic stress disorder, unspecified; G40.909 Epilepsy, unspecified, not intractable, without status epilepticus; D64.9 Anemia, unspecified; Z86.19 Personal history of other infectious and parasitic diseases; Z28.311 Partially vaccinated for COVID-19; Z88.0 Allergy status to penicillin
CPT/HCPCS: 36415; 80053; 85027; 86593; 86780; 87811; C9803-CS; U0003; U0005